=== PATIENT | female | born 1935 | race Caucasian/White ===

== ENCOUNTER 2019-10-02 00:36 | Inpatient (IN) | payer MEDICARE, BC, SELFPAY ==
[2019-10-02] VITALS (18 sets, daily range): BP systolic 103–155; BP diastolic 46–76; PULSE 54–97; RESP 14–22; TEMP 36.4–37.7; O2SAT 96–99; BMI 16.5
--- NOTE | ~2019-10-02 | XR_ITS ---
EXAMINATION: XR chest 1V portable DATE: 10/04/2019 06:16 INDICATION: COVID-19 pneumonia. TECHNIQUE: A single frontal view of the chest was obtained. COMPARISON: Chest single view 10/02/2019 FINDINGS: There are airspace opacities in right lower lung zone. Skinfolds overlie left chest. Calcif ied left lung nodules are consistent with old granulomatous disease. No pleural effusion or pneumotho rax. The heart size is normal. Surgical clips in the right upper quadrant are likely from cholecystec amber. IMPRESSION: 1. Worsened airspace opacities in right lower lung zone, consistent with pneumonia. Reviewed, dictated and finalized at location A. IMPRESSION: 1. Worsened airspace opacities in right lower lung zone, consistent with pneumo xu.
--- NOTE | ~2019-10-02 | XR_ITS ---
EXAMINATION: XR chest 1V portable DATE: 10/02/2019 01:14 INDICATION: Weakness. COVID-19 positive. TECHNIQUE: A single frontal view of the chest was obtained. COMPARISON: Chest 2 views 07/19/2017, chest CT 07/19/2017 FINDINGS: There are airspace opacities in right lower lung zone. No pleural effusion or pneumothorax. The heart size is normal. IMPRESSION: 1. Mild airspace opacities in right lower lung zone, consistent with atelectasis versus pneumonia. Reviewed, dictated and finalized at location A. IMPRESSION: 1. Mild airspace opacities in right lower lung zone, consistent with atelectasi s versus pneumonia.
--- NOTE | 2019-10-02 00:34 | ED.WEAKNESS ---
HPI - Weakness General Chief complaint: Weakness Stated complaint: weakness/ n/v/ covid + Source: patient and EMS Mode of arrival: EMS History of Present Illness HPI Narrative: Patient is an 84-year-old female with a history of hypothyroidism who presents for evaluation of weakness, nausea and vomiting with recent COVID diagnosis. Patient states over the past 3 days she has been unable to tolerate oral intake due to nausea and vomiting. She denies any headache, chest pain, abdominal pain. She reports feeling diffusely weak, denies any focal weakness or numbness. She has been ambulatory and denies any falls at home. Patient states her recently on September 19, he had been diagnosed with COVID as well. Patient denies fever, chills, rhinorrhea, cough or diarrhea. Related Data Allergies Allergy/AdvReac Type Severity Reaction Status Date / Time No Known Allergies Allergy Verified 10/02/19 02:29 Review of Systems Review of Systems: Narrative: CONSTITUTIONAL: Denies fever, chills, or sweats. EYES: Denies visual changes, redness, or discharge. ENT: Denies rhinorrhea, congestion, sore throat, or otalgia. CARDIOVASCULAR: Denies chest pain, palpitations, or edema. RESPIRATORY: Denies cough or dyspnea. GASTROINTESTINAL: Denies abdominal pain, reports nausea and vomiting GENITOURINARY: Denies dysuria or hematuria. SKIN: Denies rash or itching. MUSCULOSKELETAL: Denies back pain, joint pain, or myalgia. NEUROLOGIC: Denies headache, numbness, reports nonfocal weakness PMFSH Past Medical History Medical History Aortic stenosis Hypothyroidism Temporal arteritis Social History Social History (Updated 10/02/19 @ 00:47 by Dulce Gutierres MD) Smoking status: Never smoker Alcohol intake: never Substance use: never Living arrangements: with family Gender identity (if verbalized by the patient): Female Exam Narrative: Exam Narrative: GENERAL: Awake, alert, conversant, thin, elderly HEAD: Normocephalic, atraumatic. EYES: PERRLA and EOMI. ENT: Nares clear, no rhinorrhea or epistaxis. Mucous membranes dry NECK: Supple. CHEST: No respiratory distress, breathing even and non labored HEART: Regular rate, sinus rhythm ABDOMEN:Non distended, non tender in all 4 quadrants, no rebound or guarding EXTREMITIES: Normal range of motion. No edema. SKIN: Warm, dry, no rash. NEURO:No focal deficits. Alert and oriented x3 Course Vital Signs Vital signs: Vital Signs Temperature 36.4 C L 10/02/19 00:39 Pulse Rate 73 10/02/19 00:39 Respiratory Rate 22 H 10/02/19 00:39 Blood Pressure 143/59 H 10/02/19 00:39 Pulse Oximetry 98 10/02/19 00:39 Temperature 36.4 C L 10/02/19 00:39 Pulse Rate 62 10/02/19 02:26 Respiratory Rate 20 10/02/19 02:26 Blood Pressure 103/56 L 10/02/19 02:26 Pulse Oximetry 97 10/02/19 02:26 MDM - Weakness MDM Narrative Medical decision making narrative: Patient is an 84-year-old female with a positive COVID diagnosis who presents for evaluation of weakness, nausea and vomiting. Patient at the time of assessment is alert and oriented x4, vital signs are stable. No focal neurological deficits, and pt actually has decent strength in bilateral upper and lower extremities. No hypoxemia, or increased work of breathing. No chest pain or shortness of breath. Laboratory results show pancytopenia. She is lymphopenic. Her sodium is critically low at 115. She is hypochloremic as well. No acute kidney injury. Patient with mild elevation in troponin. EKG obtained at the time of arrival is abnormal; compare to EKG in July of 2017 when patient was admitted for pneumonia and there are changes present. Whether this is related to acute ischemia I doubt given lack of other symptoms. I believe we can continue to trend troponin, as patient is not reporting any anginal type symptoms such as chest pain, diaphoresis, dyspnea and pt is hem
--- NOTE | 2019-10-02 00:42 | ECG_ITS ---
Measurements Intervals [place] Rate: 72 P: 49 WA: 141 QRS: 36 QRSD: 83 T: -57 QT: 388 QTc: 426 Interpretive Statements SINUS RHYTHM CANNOT RULE OUT SEPTAL INFARCT, AGE INDETERMINATE BORDERLINE T WAVE ABNORMALITY- ANTEROLAT/INF LEADS BASELINE ARTIFACT- I, III, AVL, AVF, V1, V3 BORDERLINE ECG Electronically Signed On 10-02-2019 7:04:35 CDT by Daren Echevarria D.O.
[2019-10-02] MEDS: SODIUM CHLORIDE 0.9% IV 1,000 ML 999 ML IV CONT (00:49)
[2019-10-02 01:09] LABS: Hematocrit 31.7 % (37.0-47.0); Hemoglobin 11.4 g/dL (12.0-15.0); Immature Granulocyte Absolute 0.01 K/mm3 (0.00-0.031); Immature Granulocyte Percent A 0.2 % (0-0.5); Immature Platelet Fraction Pct 5.3 % (0.9-11.2); Lymphocytes Absolute Auto 0.57 K/mm3 (0.9-3.2); Lymphocytes Percent Auto 13.2 % (18.3-44.2); Mean Corpuscular Hemoglobin 29.8 pg (26-34); Mean Platelet Volume 10.4 fl (7.4-10.4); Monocytes Absolute Auto 0.5 K/mm3 (0.1-0.6); Monocytes Percent Auto 11.1 % (2.6-8.5); Neutrophils Absolute Auto 3.3 K/mm3 (1.3-6.7); Neutrophils Percent Auto 75.5 % (45.5-73.1); Platelet Count Result 131 k/mm3 (150-375); Red Blood Count 3.82 M/mm3 (4.2-5.4); Red Cell Distribution Width 11.9 % (11.5-14.5); White Blood Count 4.3 K/mm3 (4.5-10.0)
[2019-10-02 01:22] LABS: INR 0.9; Prothrombin Time 11.7 Seconds (11.1-14.7)
[2019-10-02 01:23] LABS: Partial Thromboplastin Time 29.8 SECONDS (22.3-36.8)
[2019-10-02 01:46] LABS: Lactic Acid Reflex 1.1 mmol/L (0.7-2.1)
[2019-10-02 02:36] LABS: Alanine Aminotransferase 28 U/L (4-35); Albumin Level 3.1 g/dL (3.5-5.1); Alkaline Phosphatase 49 U/L (38-126); Anion Gap 9 mmol/L (8-16); Aspartate Amino Transferase 49 U/L (14-36); Bilirubin,Total 0.3 mg/dL (0.2-1.3); Blood Urea Nitrogen 15 mg/dL (7-17); CRP 1.3 mg/dL (<1.0); Calcium 6.8 mg/dL (8.4-10.2); Carbon Dioxide 21 mmol/L (22-30); Chloride 85 mmol/L (98-107); Estimated Glomerular Filt Rate > 60; Glucose 98 mg/dL (65-105); Lactate Dehydrogenase 481 U/L (313-618); Sodium 115 mmol/L (137-145); Troponin I 0.084 ng/mL (0.000-0.034)
[2019-10-02] MEDS: SODIUM CHLORIDE 0.9% IV 1,000 ML 100 ML IV CONT (02:55)
[2019-10-02 03:45] LABS: Add Urine Microscopic? YES; Appearance Urine Clear (Clear); Bacteria Urine Trace /hpf; Bilirubin Urine Negative (Negative); Blood Urine 2+ (Negative); Color Urine Straw (Yellow); Glucose Urine UA Negative (Negative); Ketones Urine Trace mg/dL (Negative); Leukocyte Esterase Ur 2+ LEU/UL (Negative); Nitrate Urine Negative (Negative); Protein Urine 1+ mg/dL (Negative); RBC Urine 51-75 /hpf (0-2); Specific Grav Ur 1.012 (1.001-1.035); Urobilinogen Urine Negative mg/dL (<2.0); WBC Urine 51-75 /hpf
--- NOTE | 2019-10-02 03:46 | ADMGEN ---
This patient, Sri Ch, was admitted to Intensive Care Unit-1. Patient/family oriented to hospital policies and general routines including ID bracelet, bed and alarms, visiting hours, pain management, procedures, bathroom and other care routines, personal items, smoking policy, room service/diet, and visiting hours. Valuables list has been completed. Information on how to activate the Rapid Response Team has been discussed. Patient/Family are encouraged to report perceived risks to care and to ask questions if they do not understand what they are told or what they should do.
[2019-10-02] MEDS: ONDANSETRON INJ 4 MG/2 ML VIAL IV PUSH ×4 (03:50→22:15)
--- NOTE | 2019-10-02 03:57 | PM.IMHP ---
H&P: HPI History of Present Illness Date/Time: 10/02/19 03:57 Chief complaint: Hyponatremia, Dehydration Narrative: This is an 84 year old female with known hypothyroidism and recently tested positive for COVID-19 approximately 1 week ago who presented to our hospital with a complaint of feeling weak, dizzy, nauseated and vomited 4 times. She admits that she has not been drinking alot of fluids over the past 3 days. She denies any significant coughing and on my encounter with her she has a sporadic dry cough at times. She also denies any shortness of breath, headache, seizure like activity, passing out, head trauma,fever, focal neurological symptoms, palpitations, abdominal pain, dysuria, or rectal bleeding. The patient was evaluated in the ER tonight and found to have severe hyponatremia with a serum sodium of 115. She was also found to have an elevated troponin. The patient is not on any diuretics. Review of Systems Review of Systems: All systems reviewed & are unremarkable except as noted in HPI and below PMFSH Past Medical History Medical History Aortic stenosis Hypothyroidism Temporal arteritis Family History Family History Mother Gallbladder cancer Heart disease Father Heart disease Social History Social History Smoking status: Never smoker Alcohol intake: never Substance use: never Living arrangements: with family Gender identity (if verbalized by the patient): Female Spiritual care concerns: No Meds Home Medications and Allergies Home Medications Medication Instructions Recorded Confirmed Type alendronate 70 mg PO WEEKLY 10/02/19 10/02/19 History calcitriol 0.25 mcg PO DAILY 10/02/19 10/02/19 History lansoprazole 30 mg PO DAILY 10/02/19 10/02/19 History levothyroxine [Synthroid] 50 mcg PO DAILY 10/02/19 10/02/19 History metoprolol succinate 50 mg PO DAILY 10/02/19 10/02/19 History nifedipine 90 mg PO DAILY 10/02/19 10/02/19 History Allergies Allergy/AdvReac Type Severity Reaction Status Date / Time No Known Allergies Allergy Verified 10/02/19 02:29 Vital Signs Vital Signs - 24 hr 10/02/19 00:39 10/02/19 01:22 10/02/19 02:26 Temperature 36.4 C L Pulse Rate 73 60 62 Respiratory Rate 22 H 20 20 Blood Pressure 143/59 H 128/53 L 103/56 L Pulse Oximetry 98 96 97 10/02/19 02:52 10/02/19 03:19 Temperature Pulse Rate 65 62 Respiratory Rate 20 20 Blood Pressure 136/50 L 134/52 L Pulse Oximetry 97 97 Exam Const: General: cooperative, no acute distress, alert and awake Nutritional Appearance: well nourished Orientation/consciousness: patient oriented x3 HENMT: Head: normal to inspection General nose exam: Normal external nose present Face and sinus: normal facial exam Mouth: Yes Normal oral and palatal mucosa present and Yes oropharynx normal Eyes: Pupils: Equal, round and reactive pupils present EOM: EOMs intact bilaterally Neck: Neck: supple and no JVD Thyroid: thyroid normal Lymphatic: lymphadenopathy not noted Resp: Effort & Inspection: normal respiratory effort Auscultation: clear to auscultation bilaterally Cardio: Rate: regular rate Rhythm: regular rhythm Heart sounds: Murmur heart sound present (radiates to carotids++ ) systolic GI: Inspection: normal to inspection Auscultation: normal bowel sounds Skin: General skin exam: normal color and no rashes or lesions noted Neuro: General: patient oriented x3 Cranial nerves: Yes CN's II-XII intact bilaterally and Yes Equal, round and reactive pupils present Speech: normal speech Motor exam (neuro): 5/5 motor strength present throughout Sensory Exam: normal sensation Extrem: General: normal to inspection and no edema Psych: Mental Status: mental status grossly normal Affect: normal affect H&P: Results Labs Labs: Short CB
[2019-10-02 05:27] LABS: Anion Gap 10 mmol/L (8-16); Blood Urea Nitrogen 15 mg/dL (7-17); Calcium 7.2 mg/dL (8.4-10.2); Carbon Dioxide 17 mmol/L (22-30); Chloride 86 mmol/L (98-107); Estimated CRCL calculation 43 ml/min; Estimated Glomerular Filt Rate > 60; Glucose 98 mg/dL (65-105); Potassium 4.4 mmol/L (3.4-5.0); Sodium 113 mmol/L (137-145)
[2019-10-02 05:28] LABS: Troponin I 0.092 ng/mL (0.000-0.034)
[2019-10-02] MEDS: LEVOTHYROXINE SODIUM 50 MCG TABLET PO (06:33)
--- NOTE | 2019-10-02 08:11 | PM.CNNEP ---
Assessment and Plan Assessment and plan (1) Acute hyponatremia: Code(s): E87.1 - Hypo-osmolality and hyponatremia Status: Acute Assessment and Plan: the patient has a low sodium. Looking back in the chart, her sodium level was low back in 2018 as well. At that time she had pneumonia. So she has chronic hyponatremia. Now it is worse. She looks dehydrated. The story fits for dehydration as well. She is not on any medications that would cause her to have hyponatremia, including narcotics, SSRIs, and diuretics. Her chest x-ray does show atelectasis versus pneumonia. She does not really have any symptoms of the latter except that she does have COVID-19. We can check a cortisol level to make sure this is okay. We will check a TSH as well. Since the hypothyroidism is chronic and she does not have any neurologic issues I do not think we need to get a brain scan at this point but if the sodium is still difficult to control when she is done with her COVID-19 consider on MRI of the brain. (2) Dehydration: Code(s): E86.0 - Dehydration Status: Acute Assessment and Plan: The patient is getting hypertonic saline right now since her sodium level worsened. I asked the nurse to leave this on board for another 2 hours then stop it and check another sodium level. In the meantime we can continue normal saline infusion once the Hypertonic sodium infusion is stopped. (3) Hypertension: Code(s): I10 - Essential (primary) hypertension Status: Acute Assessment and Plan: blood pressure is well contr (4) Normocytic anemia: Code(s): D64.9 - Anemia, unspecified Status: Acute Assessment and Plan: Hemoglobin is mildly low. Check iron levels (5) Abnormal urinalysis: Code(s): R82.90 - Unspecified abnormal findings in urine Status: Acute Assessment and Plan: the patient has pyuria and hematuria. Urine culture is pending. She is on ceftriaxone. (6) COVID-19: Code(s): U07.1 - COVID-19 Status: Acute Assessment and Plan: She had a positive test week ago. (7) Aortic stenosis: Qualifiers: Cardiac valve disease etiology: etiology unspecified Qualified Code(s): I35.0 - Nonrheumatic aortic (valve) stenosis Code(s): I35.0 - Nonrheumatic aortic (valve) stenosis Status: Chronic Assessment and Plan: This is not giving her any trouble right now (8) Hypothyroidism: Qualifiers: Hypothyroidism type: unspecified Qualified Code(s): E03.9 - Hypothyroidism, unspecified Code(s): E03.9 - Hypothyroidism, unspecified Status: Chronic Assessment and Plan: she is on Synthroid History of Present Illness Reason for Consult Consult date: 10/02/19 Reason for consult: hyponatremia Chief Complaint Chief complaint: Hyponatremia, Dehydration History of Present Illness Narrative: Frances olivo is a very pleasant 84-year-old lady who has hypothyroidism, COVID-19, aortic stenosis, Hypertension,and temporal arteritis. The patient recently lost her COVID-19 and acquired herself 1 week ago. She was apparently asymptomatic at that time however in the last 4 days the patient has become weak and dizzy and had nausea and vomiting. Her symptoms grew worse and so she came to the emergency room. In the ER she was found to have a sodium of 115. She was felt to be dehydrated so she was given saline 1000cc bolus. The level was repeated and was down to 115. She was admitted to the ICU on a fluid restriction. because the sodium had dropped doctor latent started hypertonic saline at a slow rate. Repeat sodium has not yet been done. The patient feels okay. She is still dizzy when she stands up. She is not taking any antidepressants, pain pills, narcotics, nonsteroidal anti-inflammatory agents, or diuretics. she does have hypertension and she is on metoprolol and nifedipin
[2019-10-02] MEDS: METOPROLOL SUCCINATE EXT REL 50 MG TABCR PO (09:04)
[2019-10-02] MEDS: NIFEdipine 30 MG TAB.ER.24 90 MG PO (09:04)
[2019-10-02] MEDS: calcitrioL 0.25 MCG CAPSULE PO (09:04)
[2019-10-02] MEDS: PANTOPRAZOLE 40 MG TABLET PO (09:04)
[2019-10-02 09:58] LABS: Sodium Urine Random 36 meq/L
[2019-10-02 09:59] LABS: Creatinine Urine 18.4 mg/dL; Total Protein Urine Random 21 mg/dL
--- NOTE | 2019-10-02 10:34 | PM.CNCAR ---
Assessment and Plan Assessment and plan (1) Elevated troponin: Code(s): R79.89 - Other specified abnormal findings of blood chemistry Status: Acute Assessment and Plan: This does not appear to be secondary to acute coronary syndrome as she has no anginal symptoms. Is not uncommon to have mild troponin elevation and COVID positive patients. Patient is hemodynamically stable and without acute ischemic changes on EKG to warrant further ischemic evaluation. Continue supportive care, isolation. Aspirin 81 mg daily reasonable although mild thrombocytopenia will need to be monitored. she has no history of CAD with a negative stress test in 2018. Recent echocardiogram performed in our office July 2019 does not need to be repeated at this time. (2) COVID-19: Code(s): U07.1 - COVID-19 Status: Acute Assessment and Plan: Per primary service. Supportive care. (3) Acute hyponatremia: Code(s): E87.1 - Hypo-osmolality and hyponatremia Status: Acute Assessment and Plan: acute on chronic. I do not see medications contributing, TSH normal. Imaging if neuro sxs . Continue saline. Follow sodium levels and neurologic status closely. appreciate nephrology involvement and recommendations. (4) Aortic stenosis: Qualifiers: Cardiac valve disease etiology: etiology unspecified Qualified Code(s): I35.0 - Nonrheumatic aortic (valve) stenosis Code(s): I35.0 - Nonrheumatic aortic (valve) stenosis Status: Chronic Assessment and Plan: Moderate, asymptomatic. No acute issue. (5) Hypertension: Code(s): I10 - Essential (primary) hypertension Status: Acute Assessment and Plan: Stable. (6) Thrombocytopenia: Code(s): D69.6 - Thrombocytopenia, unspecified Status: Acute Assessment and Plan: Mild. Monitor for bleeding. Continue to follow CBC. History of Present Illness History of Present Illness Consult date/time: Date of service: 10/02/19 10:34 Cardiology consultation at the request of Dr. Heber Stephens Hospitalist Service for elevated Troponin in a COVID postive patient. Requesting physician: Colton Hansen MD Consult reason: Other (elevated troponin) Reason For Visit: Hyponatremia, Dehydration Narrative: patient is an 84-year-old female whom I follow as an outpatient with a history of hypertension, chronic kidney disease, chronic hyponatremia, hypothyroidism, h/o symptomatic PVCs status post PVC ablation x2, history of aortic stenosis, mitral tricuspid regurgitation. No history of CAD and with the negative stress test 08/11/2017. Echocardiogram 07/17/2019 and are office EF 65% [id number] MR, moderate mean gradient 11 mm Hg valve area 1.2 centimeters squared [id number] AI, RVSP 45 mm Hg moderate to severe tricuspid regurgitation. patient was diagnosed with COVID-19 1 week prior to presentation. She presented with complaints of feeling weak, dizzy a, nausea and vomiting, decreased oral intake. She denies significant shortness of breath or fever. No near-syncope or syncope. Patient has not had chest pain at any time. Her recently on September 19 multiple medical problems as well as COVID-19 positive. In the ER she was severely hyponatremic serum sodium of 115, troponin was checked for unclear reasons and was mildly elevated 0.084, 0.092. EKG unchanged without acute ischemic changes. She continues to denied chest pain or shortness of breath. Other than feeling weak she has no other complaints presently. Review of Systems Review of Systems: All systems reviewed & are unremarkable except as noted in HPI and below Constitutional: Constitutional: Reports as per HPI, Reports no additional constitutional complaints, Reports fatigue, Reports lethargy and Reports weakness Eyes: Eyes: Reports as per HPI and Reports no additional eye complaints ENT: Reports system reviewed and no additional
[2019-10-02 11:14] LABS: Sodium 121 mmol/L (137-145)
[2019-10-02 14:34] LABS: Sodium 124 mmol/L (137-145)
[2019-10-02] MEDS: DESMOPRESSIN ACETATE 4 MCG/ML AMP 2 MCG IV PUSH ×2 (17:11→21:03)
--- NOTE | 2019-10-02 17:22 | PM.IMPN ---
Progress Note: A&P Assessment and Plan (1) Acute hyponatremia: Code(s): E87.1 - Hypo-osmolality and hyponatremia Status: Acute Assessment and Plan: , check urine sodium and urine osm, TSH normal. The patient received 1 liter of NS IV bolus in the ER and repeat BMP demonstrated worsened serum sodium of 113. received hypertonic saline after discussion with admissions rn sodium rising to quickly cell now receiving DDVP and D5W nephrology managing sodium adjusting and fluids random cortisol level still pending if low do stimulation test sodium has been toward low side in the past but typically low 130s (2) Weakness: Code(s): R53.1 - Weakness Status: Acute Assessment and Plan: Likely secondary to dehydration, hyponatremia, and covid-19 infection. PT/OT evaluation when appropriate. (3) Abnormal urinalysis: Code(s): R82.90 - Unspecified abnormal findings in urine Status: Acute Assessment and Plan: r/o UTI. urine culture. Ceftriaxone IV pending results of culture (4) Dehydration: Code(s): E86.0 - Dehydration Status: Acute Assessment and Plan: Continue IV hydration. (5) Elevated troponin: Code(s): R79.89 - Other specified abnormal findings of blood chemistry Status: Acute Assessment and Plan: May be secondary to COVID-19 infection. cardiology has seen and no further intervention planned. Has had ischemic workup in the past which is negative (6) COVID-19: Code(s): U07.1 - COVID-19 Status: Acute Assessment and Plan: Continue droplet isolation. Supportive care check inflammatory markers. (7) Hypothyroidism: Qualifiers: Hypothyroidism type: unspecified Qualified Code(s): E03.9 - Hypothyroidism, unspecified Code(s): E03.9 - Hypothyroidism, unspecified Status: Chronic Assessment and Plan: Continue levothyroxine PO. TSH normal (8) Aortic stenosis: Qualifiers: Cardiac valve disease etiology: etiology unspecified Qualified Code(s): I35.0 - Nonrheumatic aortic (valve) stenosis Code(s): I35.0 - Nonrheumatic aortic (valve) stenosis Status: Chronic Assessment and Plan: no change follow with level vial inspector and tester had echo within the last few months (9) Hypertension: Code(s): I10 - Essential (primary) hypertension Status: Acute Assessment and Plan: pressure adequately controlled continue beta-marcus and calcium channel marcus (10) Thrombocytopenia: Code(s): D69.6 - Thrombocytopenia, unspecified Status: Acute Assessment and Plan: mild thrombocytopenia. Will continue with b.i.d. Lovenox given the tendency for hypercoagulation with COVID and follow platelet count serially Subjective Date/time seen: 10/02/19 17:22 Interval history: 84-year-old white female with history of hypertension and recent diagnosis of COVID admitted with nausea vomiting and weakness. Found to be hyponatremic with sodium 115. Has been given hypertonic saline with rapidly rising sodium. Nephrology managing Exam Narrative: Exam Narrative: blood pressure 138/50 pulse 70 saturating 97% on room air afebrile pupils equal reactive light sclera anicteric neck supple no adenopathy thyromegaly carotid bruits lungs clear CV systolic ejection murmur abdomen is soft bowel sounds normal active extremities without edema distal pulses are 1 to 2+ neuro alert pleasant cooperative no focal deficits Objective Data Vital Signs Vital Signs: Vital Signs - 24 hr 10/02/19 00:39 10/02/19 01:22 10/02/19 02:26 Temperature 36.4 C L Pulse Rate 73 60 62 Respiratory Rate 22 H 20 20 Blood Pressure 143/59 H 128/53 L 103/56 L Pulse Oximetry 98 96 97 10/02/19 02:52 10/02/19 03:19 10/02/19 04:00 Temperature 37.1 C Pulse Rate 65 62 70 Respiratory Rate 20 20 19 Blood Pressure 136/50 L 134/52 L 140/76 Pulse Oximetry 97 97 98 10/02/19 06:00
[2019-10-02 19:59] LABS: Anion Gap 8 mmol/L (8-16); Blood Urea Nitrogen 13 mg/dL (7-17); Calcium 7.2 mg/dL (8.4-10.2); Carbon Dioxide 22 mmol/L (22-30); Chloride 94 mmol/L (98-107); Estimated CRCL calculation 37 ml/min; Estimated Glomerular Filt Rate > 60; Glucose 122 mg/dL (65-105); Potassium 3.6 mmol/L (3.4-5.0); Sodium 124 mmol/L (137-145)
[2019-10-02] MEDS: ACETAMINOPHEN 325 MG TABLET 650 MG PO (20:16)
[2019-10-02] MEDS: ENOXAPARIN 40 MG/0.4 ML SYRINGE SUB-Q (20:18)
[2019-10-02 22:36] LABS: Anion Gap 8 mmol/L (8-16); Blood Urea Nitrogen 15 mg/dL (7-17); Calcium 7.8 mg/dL (8.4-10.2); Carbon Dioxide 23 mmol/L (22-30); Chloride 89 mmol/L (98-107); Estimated CRCL calculation 33 ml/min; Estimated Glomerular Filt Rate > 60; Glucose 106 mg/dL (65-105); Potassium 3.6 mmol/L (3.4-5.0); Sodium 120 mmol/L (137-145)
[2019-10-03] VITALS (11 sets, daily range): BP systolic 101–125; BP diastolic 34–56; PULSE 61–75; RESP 14–22; TEMP 36.4–36.6; O2SAT 95–99
[2019-10-03] MEDS: ONDANSETRON INJ 4 MG/2 ML VIAL IV PUSH ×2 (05:09→10:20)
[2019-10-03 05:10] LABS: Basophils Percent Auto 0.2 % (0.2-1.2); Hematocrit 31.2 % (37.0-47.0); Hemoglobin 10.9 g/dL (12.0-15.0); Immature Granulocyte Absolute 0.01 K/mm3 (0.00-0.031); Immature Granulocyte Percent A 0.2 % (0-0.5); Lymphocytes Absolute Auto 0.74 K/mm3 (0.9-3.2); Lymphocytes Percent Auto 15.4 % (18.3-44.2); Mean Corpuscular HGB Conc 34.9 g/dl (32-36); Mean Corpuscular Hemoglobin 29.6 pg (26-34); Mean Corpuscular Volume 84.8 fl (80-100); Mean Platelet Volume 10.2 fl (7.4-10.4); Monocytes Absolute Auto 0.5 K/mm3 (0.1-0.6); Monocytes Percent Auto 10.4 % (2.6-8.5); Neutrophils Absolute Auto 3.5 K/mm3 (1.3-6.7); Neutrophils Percent Auto 73.8 % (45.5-73.1); Platelet Count Result 132 k/mm3 (150-375); Red Blood Count 3.68 M/mm3 (4.2-5.4); Red Cell Distribution Width 12.2 % (11.5-14.5); White Blood Count 4.8 K/mm3 (4.5-10.0)
[2019-10-03] MEDS: ACETAMINOPHEN 325 MG TABLET 650 MG PO ×3 (05:15→22:45)
[2019-10-03 05:25] LABS: D Dimer 0.77 ug/mL (<0.48)
[2019-10-03 05:34] LABS: Anion Gap 8 mmol/L (8-16); Blood Urea Nitrogen 16 mg/dL (7-17); CRP 2.1 mg/dL (<1.0); Calcium 7.8 mg/dL (8.4-10.2); Carbon Dioxide 24 mmol/L (22-30); Chloride 88 mmol/L (98-107); Estimated CRCL calculation 30 ml/min; Estimated Glomerular Filt Rate 60; Glucose 96 mg/dL (65-105); Lactate Dehydrogenase 604 U/L (313-618); Potassium 3.5 mmol/L (3.4-5.0); Sodium 120 mmol/L (137-145)
[2019-10-03] MEDS: LEVOTHYROXINE SODIUM 50 MCG TABLET PO (06:44)
[2019-10-03] MEDS: METOPROLOL SUCCINATE EXT REL 50 MG TABCR PO (08:24)
[2019-10-03] MEDS: PANTOPRAZOLE 40 MG TABLET PO (08:24)
[2019-10-03] MEDS: ENOXAPARIN 40 MG/0.4 ML SYRINGE SUB-Q ×2 (08:24→20:00)
[2019-10-03] MEDS: calcitrioL 0.25 MCG CAPSULE PO (08:24)
[2019-10-03] MEDS: NIFEdipine 30 MG TAB.ER.24 90 MG PO (08:24)
--- NOTE | 2019-10-03 08:51 | PM.PNNEP ---
Progress Note: A&P Assessment and Plan (1) Acute hyponatremia: Code(s): E87.1 - Hypo-osmolality and hyponatremia Status: Acute Assessment and Plan: the patient has a low sodium. Looking back in the chart, her sodium level was low back in 2018 as well. At that time she had pneumonia. So she has chronic hyponatremia. Now it is worse. Cortisol and thyroid okay. Chest x-ray negative. Most likely due to superimposed dehydration. Yesterday she got some IV fluids and began to auto correct too quickly. So I gave her DDAVP and some D5W and the sodium came back down to a reasonable 120. She is 120 again this morning. She is still dehydrated so I will give her some Isotonic IV fluids today. (2) Dehydration: Code(s): E86.0 - Dehydration Status: Acute Assessment and Plan: start normal saline (3) Hypertension: Code(s): I10 - Essential (primary) hypertension Status: Acute Assessment and Plan: blood pressure is well contr (4) Normocytic anemia: Code(s): D64.9 - Anemia, unspecified Status: Acute Assessment and Plan: Hemoglobin is mildly low. Check iron levels (5) Abnormal urinalysis: Code(s): R82.90 - Unspecified abnormal findings in urine Status: Acute Assessment and Plan: the patient has pyuria and hematuria. Urine culture shows 3 different organisms. She is on ceftriaxone. (6) COVID-19: Code(s): U07.1 - COVID-19 Status: Acute Assessment and Plan: She had a positive test week ago. (7) Aortic stenosis: Qualifiers: Cardiac valve disease etiology: etiology unspecified Qualified Code(s): I35.0 - Nonrheumatic aortic (valve) stenosis Code(s): I35.0 - Nonrheumatic aortic (valve) stenosis Status: Chronic Assessment and Plan: This is not giving her any trouble right now (8) Hypothyroidism: Qualifiers: Hypothyroidism type: unspecified Qualified Code(s): E03.9 - Hypothyroidism, unspecified Code(s): E03.9 - Hypothyroidism, unspecified Status: Chronic Assessment and Plan: she is on Synthroid Subjective Date/time seen: 10/03/19 08:51 Interval history: Patient is alert. No appetite. nausea and vomiting are better. She denies shortness of breath or chest pain Review of Systems Cardiovascular: Cardiovascular: Reports no additional cardiovascular complaints Respiratory: Respiratory: Reports no additional respiratory complaints Gastrointestinal: Gastrointestinal: Reports no additional gastrointestinal complaints Genitourinary: Genitourinary: Reports no additional female genitourinary complaints Exam Narrative: Exam Narrative: WDWN in NAD skin no rash head ncat lungs clear cor reg no rub abd BS+ nontender and soft ext no edema. Objective Data Vital Signs Vital Signs: Vital Signs - 24 hr 10/02/19 09:04 10/02/19 10:00 10/02/19 12:00 Temperature 36.7 C Pulse Rate 69 58 L 68 Respiratory Rate 16 17 Blood Pressure 144/47 H 124/55 L Pulse Oximetry 99 97 10/02/19 14:00 10/02/19 16:00 10/02/19 18:00 Temperature 36.6 C Pulse Rate 70 75 77 Respiratory Rate 17 14 21 H Blood Pressure 138/49 L 121/46 L 129/48 L Pulse Oximetry 97 98 96 10/02/19 20:00 10/02/19 20:16 10/02/19 21:05 Temperature 37.7 C H 37.7 C H 37.7 C H Pulse Rate 70 Respiratory Rate 16 Blood Pressure 123/48 L Pulse Oximetry 96 10/02/19 22:00 10/03/19 00:00 10/03/19 02:00 Temperature 36.6 C Pulse Rate 97 64 63 Respiratory Rate 19 16 17 Blood Pressure 123/46 L 121/50 L 112/41 L Pulse Oximetry 97 98 96 10/03/19 04:00 10/03/19 06:00 10/03/19 08:00 Temperature 36.6 C Pulse Rate 75 61 65 Respiratory Rate 19 18 Blood Pressure 113/45 L 115/46 L Pulse Oximetry 97 95 Intake/Output Intake/Output: Intake & Output 09/30/19 10/01/19 10/02/19 10/03/19 23:59 23:59 23:59 23:59 In
[2019-10-03] MEDS: SODIUM CHLORIDE 0.9% IV 1,000 ML 75 ML IV CONT ×2 (10:07→22:45)
[2019-10-03 10:47] LABS: Sodium 120 mmol/L (137-145)
[2019-10-03 14:18] LABS: Sodium 120 mmol/L (137-145)
--- NOTE | 2019-10-03 18:35 | PM.IMPN ---
Progress Note: A&P Assessment and Plan (1) Acute hyponatremia: Code(s): E87.1 - Hypo-osmolality and hyponatremia Status: Acute Assessment and Plan: Na 115 on admission. Paz 36 and UCr 18. TSH normal. The patient received 1 liter of NS IV bolus in the ER and repeat BMP demonstrated worsened serum sodium of 113. She received hypertonic saline after discussion with dredge mechanic. Na climbed to 120-124 range and remained stable. Continue serial Na level. Appreciate nephrology input. (2) Weakness: Code(s): R53.1 - Weakness Status: Acute Assessment and Plan: Likely secondary to dehydration, hyponatremia, and covid-19 infection. Start PT/OT (3) Abnormal urinalysis: Code(s): R82.90 - Unspecified abnormal findings in urine Status: Acute Assessment and Plan: UA noted. Urine culture showing multiple organisms so doubt true infection. Will stop Ceftriaxone (4) Dehydration: Code(s): E86.0 - Dehydration Status: Acute Assessment and Plan: As above. Continue IV hydration. (5) Elevated troponin: Code(s): R79.89 - Other specified abnormal findings of blood chemistry Status: Acute Assessment and Plan: May be secondary to COVID-19 infection. Cardiology has seen and no further intervention planned. Has had ischemic workup in the past which was negative (6) COVID-19: Code(s): U07.1 - COVID-19 Status: Acute Assessment and Plan: Ferritin 312, LDH 600 and CRP 2.1. Continue droplet isolation. Continue supportive care. (7) Hypothyroidism: Qualifiers: Hypothyroidism type: unspecified Qualified Code(s): E03.9 - Hypothyroidism, unspecified Code(s): E03.9 - Hypothyroidism, unspecified Status: Chronic Assessment and Plan: TSH normal. Continue levothyroxine PO. (8) Aortic stenosis: Qualifiers: Cardiac valve disease etiology: etiology unspecified Qualified Code(s): I35.0 - Nonrheumatic aortic (valve) stenosis Code(s): I35.0 - Nonrheumatic aortic (valve) stenosis Status: Chronic Assessment and Plan: Stable. Monitor closely with the IV fluids. Follow with assistant associate full professor - she had echo within the last few months (9) Hypertension: Code(s): I10 - Essential (primary) hypertension Status: Acute Assessment and Plan: BP reviewed on 10/03/19. BP well controlled. Continue Nifedipine and Metoprolol. (10) Thrombocytopenia: Code(s): D69.6 - Thrombocytopenia, unspecified Status: Acute Assessment and Plan: mild thrombocytopenia. No change in plt count today. Will continue with b.i.d. Lovenox given the tendency for hypercoagulation with COVID and follow platelet count serially (11) DVT prophylaxis: Code(s): Z29.9 - Encounter for prophylactic measures, unspecified Status: Acute Assessment and Plan: Lovenox Subjective Date/time seen: 10/03/19 18:35 Interval history: 84yo female with history of hypertension and recent diagnosis of COVID admitted with nausea, vomiting and weakness and found to be hyponatremic with sodium 115. She was given hypertonic salin. She denies CP or SOB. She states she is not getting food but RN states patient has been receiving trays but only eating 10% of meals. No recent BM. No abd pain. No n/v. Exam Narrative: Exam Narrative: AF 125/56 74 18 95% RA Gen - NARD lying semi-recumbent in bed Chest - few scattered rhonchi, nml RR CV - RRR S1/S2; Tele showing no significant dysrhythmias Abd - soft, nt/nd, +BS Ext - no pedal edema Neuro - AOx4. Objective Data Vital Signs Vital Signs: Vital Signs - 24 hr 10/02/19 20:00 10/02/19 20:16 10/02/19 21:05 Temperature 99.9 F H 99.9 F H 100 F H Pulse Rate 70 Respiratory Rate 16 Blood Pressure 123/48 L Pulse Oximetry 96 10/02/19 22:00 10/03/19 00:00 10/03/19 02:0
[2019-10-03 21:24] LABS: Sodium 121 mmol/L (137-145)
--- NOTE | 2019-10-03 21:40 | PC.NURSE ---
This patient, Sri Ch, was transferred to [facility] on 10/03/19 at 2000. Personal belongings sent with patient. Belongings list checked and signed with receiving Roberto Spear RN. Report given to Roberto PEARL. Appropriate documentation sent with patient.
[2019-10-04] VITALS (7 sets, daily range): BP systolic 111–126; BP diastolic 37–52; PULSE 69–89; RESP 14–20; TEMP 36.3–37.1; O2SAT 92–96
[2019-10-04] MEDS: LEVOTHYROXINE SODIUM 50 MCG TABLET PO (05:45)
[2019-10-04 06:30] LABS: Basophils Percent Auto 0.3 % (0.2-1.2); Eosinophils Percent Auto 0.3 % (0-4.4); Hemoglobin 10.6 g/dL (12.0-15.0); Immature Granulocyte Absolute 0.03 K/mm3 (0.00-0.031); Immature Granulocyte Percent A 0.8 % (0-0.5); Immature Platelet Fraction Pct 4.4 % (0.9-11.2); Lymphocytes Absolute Auto 0.69 K/mm3 (0.9-3.2); Lymphocytes Percent Auto 18.6 % (18.3-44.2); Mean Corpuscular HGB Conc 35.3 g/dl (32-36); Mean Corpuscular Hemoglobin 29.6 pg (26-34); Mean Corpuscular Volume 83.8 fl (80-100); Mean Platelet Volume 10.2 fl (7.4-10.4); Monocytes Absolute Auto 0.4 K/mm3 (0.1-0.6); Monocytes Percent Auto 11.1 % (2.6-8.5); Neutrophils Absolute Auto 2.6 K/mm3 (1.3-6.7); Neutrophils Percent Auto 68.9 % (45.5-73.1); Platelet Count Result 132 k/mm3 (150-375); Red Blood Count 3.58 M/mm3 (4.2-5.4); White Blood Count 3.7 K/mm3 (4.5-10.0)
[2019-10-04 06:43] LABS: Anion Gap 9 mmol/L (8-16); Blood Urea Nitrogen 11 mg/dL (7-17); CRP 3.6 mg/dL (<1.0); Calcium 7.4 mg/dL (8.4-10.2); Carbon Dioxide 21 mmol/L (22-30); Chloride 91 mmol/L (98-107); Estimated CRCL calculation 38 ml/min; Estimated Glomerular Filt Rate > 60; Glucose 81 mg/dL (65-105); Potassium 3.5 mmol/L (3.4-5.0); Sodium 121 mmol/L (137-145)
[2019-10-04] MEDS: METOPROLOL SUCCINATE EXT REL 50 MG TABCR PO (08:09)
[2019-10-04] MEDS: calcitrioL 0.25 MCG CAPSULE PO (08:10)
[2019-10-04] MEDS: NIFEdipine 30 MG TAB.ER.24 90 MG PO (08:10)
[2019-10-04] MEDS: ENOXAPARIN 40 MG/0.4 ML SYRINGE SUB-Q (08:10)
[2019-10-04] MEDS: PANTOPRAZOLE 40 MG TABLET PO (08:11)
[2019-10-04] MEDS: SODIUM CHLORIDE 0.9% IV 1,000 ML 75 ML IV CONT (11:21)
[2019-10-04] MEDS: ONDANSETRON INJ 4 MG/2 ML VIAL IV PUSH (11:21)
--- NOTE | 2019-10-04 11:32 | PM.PNNEP ---
Progress Note: A&P Assessment and Plan (1) Acute hyponatremia: Code(s): E87.1 - Hypo-osmolality and hyponatremia Status: Acute Assessment and Plan: the patient has a low sodium. Looking back in the chart, her sodium level was low back in 2018 as well. At that time she had pneumonia. So she has chronic hyponatremia. Now it is worse. Cortisol and thyroid okay. Chest x-ray negative. Most likely due to superimposed dehydration. Yesterday she got some IV fluids and began to auto correct too quickly. So I gave her DDAVP and some D5W and the sodium came back down to a reasonable 120. Sodium level is still 120. Urine output is not very high. Will give a small amount of hypertonic saline to get the sodium level up a little bit. (2) Dehydration: Code(s): E86.0 - Dehydration Status: Acute Assessment and Plan: start normal saline (3) Hypertension: Code(s): I10 - Essential (primary) hypertension Status: Acute Assessment and Plan: blood pressure is well controlled (4) Normocytic anemia: Code(s): D64.9 - Anemia, unspecified Status: Acute Assessment and Plan: Hemoglobin is mildly low. Check iron levels (5) Abnormal urinalysis: Code(s): R82.90 - Unspecified abnormal findings in urine Status: Acute Assessment and Plan: the patient has pyuria and hematuria. Urine culture shows 3 different organisms. She is on ceftriaxone. (6) COVID-19: Code(s): U07.1 - COVID-19 Status: Acute Assessment and Plan: She had a positive test week ago. (7) Aortic stenosis: Qualifiers: Cardiac valve disease etiology: etiology unspecified Qualified Code(s): I35.0 - Nonrheumatic aortic (valve) stenosis Code(s): I35.0 - Nonrheumatic aortic (valve) stenosis Status: Chronic Assessment and Plan: This is not giving her any trouble right now (8) Hypothyroidism: Qualifiers: Hypothyroidism type: unspecified Qualified Code(s): E03.9 - Hypothyroidism, unspecified Code(s): E03.9 - Hypothyroidism, unspecified Status: Chronic Assessment and Plan: she is on Synthroid Subjective Date/time seen: 10/04/19 11:32 Interval history: Patient is alert. No appetite. nausea and vomiting are better. resting comfortably in Review of Systems Cardiovascular: Cardiovascular: Reports no additional cardiovascular complaints Respiratory: Respiratory: Reports no additional respiratory complaints Gastrointestinal: Gastrointestinal: Reports no additional gastrointestinal complaints Genitourinary: Genitourinary: Reports no additional female genitourinary complaints Exam Narrative: Exam Narrative: WDWN in NAD skin no rash head ncat lungs clear cor reg no rub abd BS+ nontender and soft ext no edema. Objective Data Vital Signs Vital Signs: Vital Signs - 24 hr 10/03/19 12:00 10/03/19 14:00 10/03/19 16:00 Temperature 36.4 C L 36.6 C Pulse Rate 68 72 71 Respiratory Rate 16 18 22 H Blood Pressure 116/42 L 118/45 L 115/50 L Pulse Oximetry 96 99 95 10/03/19 18:00 10/03/19 19:36 10/04/19 00:45 Temperature 36.6 C 36.8 C Pulse Rate 68 74 69 Respiratory Rate 18 18 18 Blood Pressure 101/34 L 125/56 L 126/52 L Pulse Oximetry 97 95 95 10/04/19 04:00 10/04/19 08:00 10/04/19 08:09 Temperature 36.7 C 36.3 C L Pulse Rate 73 74 80 Respiratory Rate 18 14 Blood Pressure 123/42 L 121/37 L Pulse Oximetry 94 96 Intake/Output Intake/Output: Intake & Output 10/01/19 10/02/19 10/03/19 10/04/19 23:59 23:59 23:59 23:59 Intake Total 3265 1420 1520 Output Total 3300 750 200 Balance -35 670 1320 Meds/Results Medications: Active Medications Generic Name Dose Route Start Last Admin Trade Name Freq PRN Reason Stop Dose Admin Acetaminophen 650 mg 10/02/19 02:51 10/03/19 22:45 Tylenol Tablet PO 650 mg Q
[2019-10-04] MEDS: SODIUM CHLORIDE 3% 500 ML 45 ML IV CONT (12:18)
--- NOTE | 2019-10-04 16:35 | PM.IMPN ---
Progress Note: A&P Assessment and Plan (1) Acute hyponatremia: Code(s): E87.1 - Hypo-osmolality and hyponatremia Status: Acute Assessment and Plan: Na 115 on admission. Paz 36 and UCr 18. TSH normal. The patient received 1 liter of NS IV bolus in the ER and repeat BMP demonstrated worsened serum sodium of 113. She received hypertonic saline after discussion with men's leather dress belt maker. Na climbed to 120-124 range but given D5W and DDAVP given how fast it climbed. Na hasn't changed significnatly since. Discussed with nephrology with plans to repeat NaCl 3%. Appreciate nephrology input. (2) Weakness: Code(s): R53.1 - Weakness Status: Acute Assessment and Plan: Likely secondary to dehydration, hyponatremia, and COVID-19 infection. Continue PT/OT (3) Depression: Code(s): F32.9 - Major depressive disorder, single episode, unspecified Status: Acute Assessment and Plan: Mood still poor. She has lost her recently. Wasn't sure if this is organic or related to the COVID infection +/- hyponatremia. She is eating better today. Will allow her Na to improve to see if her mood improves with it. (4) Abnormal urinalysis: Code(s): R82.90 - Unspecified abnormal findings in urine Status: Acute Assessment and Plan: UA noted. Urine culture showing multiple organisms so doubt true infection. Ceftriaxone stopped. (5) Dehydration: Code(s): E86.0 - Dehydration Status: Acute Assessment and Plan: As above. Continue IV hydration. (6) Elevated troponin: Code(s): R79.89 - Other specified abnormal findings of blood chemistry Status: Acute Assessment and Plan: May be secondary to COVID-19 infection. Cardiology has seen the patient and no further intervention planned. Has had ischemic workup in the past which was negative (7) COVID-19: Code(s): U07.1 - COVID-19 Status: Acute Assessment and Plan: Ferritin 312, LDH 600 and CRP 2.1. Continue droplet isolation. Continue supportive care. (8) Hypothyroidism: Qualifiers: Hypothyroidism type: unspecified Qualified Code(s): E03.9 - Hypothyroidism, unspecified Code(s): E03.9 - Hypothyroidism, unspecified Status: Chronic Assessment and Plan: TSH normal. Continue levothyroxine PO. (9) Aortic stenosis: Qualifiers: Cardiac valve disease etiology: etiology unspecified Qualified Code(s): I35.0 - Nonrheumatic aortic (valve) stenosis Code(s): I35.0 - Nonrheumatic aortic (valve) stenosis Status: Chronic Assessment and Plan: Stable. Monitor closely with the IV fluids. Follow with semaphore operator - she had echo within the last few months (10) Hypertension: Code(s): I10 - Essential (primary) hypertension Status: Acute Assessment and Plan: BP reviewed on 10/04/19. BP well controlled. Continue Nifedipine and Metoprolol. (11) Thrombocytopenia: Code(s): D69.6 - Thrombocytopenia, unspecified Status: Acute Assessment and Plan: Mild thrombocytopenia. No change in plt count past few days. Will continue with Lovenox given the tendency for hypercoagulation with COVID and follow platelet count serially. (12) DVT prophylaxis: Code(s): Z29.9 - Encounter for prophylactic measures, unspecified Status: Acute Assessment and Plan: Lovenox Subjective Date/time seen: 10/04/19 16:35 Interval history: 84yo female with history of hypertension and recent diagnosis of COVID admitted with nausea, vomiting and weakness and found to be hyponatremic with sodium 115. She was given hypertonic saline in the ER. She is not eating much due to nausea. She is having BMs. RN states patient is eating half her tray and did take in the Ensure Exam Narrative: Exam Narrative: AF 112/48 83 18 94% ra Gen - NARD lying flat in bed Chest
[2019-10-04 19:06] LABS: Sodium 123 mmol/L (137-145)
[2019-10-05] VITALS (7 sets, daily range): BP systolic 116–124; BP diastolic 40–50; PULSE 68–80; RESP 16–20; TEMP 36.2–37.9; O2SAT 93–97
[2019-10-05] MEDS: ACETAMINOPHEN 325 MG TABLET 650 MG PO ×4 (00:19→22:02)
[2019-10-05] MEDS: LEVOTHYROXINE SODIUM 50 MCG TABLET PO (06:31)
[2019-10-05] MEDS: SODIUM CHLORIDE 0.9% IV 1,000 ML 75 ML IV CONT (06:32)
[2019-10-05 06:51] LABS: Albumin Level 3.1 g/dL (3.5-5.1); Anion Gap 8 mmol/L (8-16); Blood Urea Nitrogen 12 mg/dL (7-17); Calcium 7.5 mg/dL (8.4-10.2); Carbon Dioxide 23 mmol/L (22-30); Chloride 93 mmol/L (98-107); Estimated CRCL calculation 34 ml/min; Estimated Glomerular Filt Rate > 60; Glucose 94 mg/dL (65-105); Magnesium 1.6 mg/dL (1.6-2.3); Phosphorus 1.8 mg/dL (2.5-4.5); Potassium 2.9 mmol/L (3.4-5.0); Sodium 124 mmol/L (137-145)
[2019-10-05 07:01] LABS: Osmolality, Urine 195 mOsm/kg (50-1200)
[2019-10-05] MEDS: POTASSIUM CHLORIDE 20 MEQ TABLET 40 MEQ PO (08:09)
[2019-10-05] MEDS: MAGNESIUM SULF 2 GM/WATER 50ML 2 GM/50 ML BAG IVPB (08:09)
[2019-10-05] MEDS: ENOXAPARIN 40 MG/0.4 ML SYRINGE SUB-Q (08:11)
[2019-10-05] MEDS: PANTOPRAZOLE 40 MG TABLET PO (08:11)
[2019-10-05] MEDS: calcitrioL 0.25 MCG CAPSULE PO (08:11)
--- NOTE | 2019-10-05 08:30 | PM.PNNEP ---
Progress Note: A&P Assessment and Plan (1) Acute hyponatremia: Code(s): E87.1 - Hypo-osmolality and hyponatremia Status: Acute Assessment and Plan: the patient has a low sodium. Looking back in the chart, her sodium level was low back in 2018 as well. At that time she had pneumonia. She has chronic hyponatremia. sodium much lower on admission. Cortisol and thyroid okay. Chest x-ray negative. Most likely due to superimposed dehydration. On Wednesday, she got some IV fluids and began to auto correct too quickly. So I gave her DDAVP and some D5W and the sodium came back down to a reasonable 120. sodium stable for a long time so 3% saline given yesterday to get sodium up to 124. It is still 124 today. Urine output is not very high. So no sign of auto correction. Perhaps the DDAVP has a lasting effect. She is getting some IV fluids. This is because she was dehydrated and she is still not eating very well. These a going at75cc/hour. Will reduce the rate to 50 since the sodium level is still flat I will give another round of 3% saline (2) Dehydration: Code(s): E86.0 - Dehydration Status: Acute Assessment and Plan: on normal saline (3) Hypertension: Code(s): I10 - Essential (primary) hypertension Status: Acute Assessment and Plan: blood pressure is well controlled (4) Normocytic anemia: Code(s): D64.9 - Anemia, unspecified Status: Acute Assessment and Plan: Hemoglobin is mildly low. Check iron levels (5) Abnormal urinalysis: Code(s): R82.90 - Unspecified abnormal findings in urine Status: Acute Assessment and Plan: the patient has pyuria and hematuria. Urine culture shows 3 different organisms. She is on ceftriaxone. (6) COVID-19: Code(s): U07.1 - COVID-19 Status: Acute Assessment and Plan: She had a positive test week ago. still on isolation. (7) Aortic stenosis: Qualifiers: Cardiac valve disease etiology: etiology unspecified Qualified Code(s): I35.0 - Nonrheumatic aortic (valve) stenosis Code(s): I35.0 - Nonrheumatic aortic (valve) stenosis Status: Chronic Assessment and Plan: This is not giving her any trouble right now (8) Hypothyroidism: Qualifiers: Hypothyroidism type: unspecified Qualified Code(s): E03.9 - Hypothyroidism, unspecified Code(s): E03.9 - Hypothyroidism, unspecified Status: Chronic Assessment and Plan: she is on Synthroid Subjective Date/time seen: 10/05/19 08:30 Interval history: Patient is alert. No appetite. just feels blah. resting comfortably in bed Review of Systems Cardiovascular: Cardiovascular: Reports no additional cardiovascular complaints Respiratory: Respiratory: Reports no additional respiratory complaints Gastrointestinal: Gastrointestinal: Reports no additional gastrointestinal complaints Genitourinary: Genitourinary: Reports no additional female genitourinary complaints Exam Narrative: Exam Narrative: WDWN in NAD skin no rash or subcu nodules head ncat lungs clear to auscultation cor reg no rub abd BS+ nontender and soft ext no edema. Objective Data Vital Signs Vital Signs: Vital Signs - 24 hr 10/04/19 12:00 10/04/19 16:00 10/04/19 20:00 Temperature 36.4 C 36.8 C 37.1 C Pulse Rate 83 89 84 Respiratory Rate 18 20 20 Blood Pressure 112/48 L 111/41 L 118/50 L Pulse Oximetry 94 92 93 10/05/19 02:00 10/05/19 04:00 Temperature 36.2 C L 37.9 C H Pulse Rate 80 68 Respiratory Rate 18 20 Blood Pressure 120/40 L 118/44 L Pulse Oximetry 94 97 Intake/Output Intake/Output: Intake & Output 10/02/19 10/03/19 10/04/19 10/05/19 23:59 23:59 23:59 23:59 Intake Total 3265 1420 2280 1290 Output Total 3300 750 1600 Balance -35 002 302 2449 Meds/Results Medications: Active Medications Generic Name Dose R
[2019-10-05] MEDS: METOPROLOL SUCCINATE EXT REL 50 MG TABCR PO (10:17)
[2019-10-05] MEDS: SODIUM CHLORIDE 3% 150 ML 50 ML IV CONT (10:18)
[2019-10-05] MEDS: NIFEdipine 30 MG TAB.ER.24 90 MG PO (10:18)
[2019-10-05] MEDS: POTASSIUM PHOS,M-BASIC-D-BASIC 20 MMOL in SODIUM CHLORIDE 0.9% IV 250 ML 64 MMOL IVPB (11:11)
--- NOTE | 2019-10-05 11:45 | PM.IMPN ---
Progress Note: A&P Assessment and Plan (1) Acute hyponatremia: Code(s): E87.1 - Hypo-osmolality and hyponatremia Status: Acute Assessment and Plan: Na 115 on admission. Paz 36 and UCr 18. TSH normal. The patient received 1 liter of NS IV bolus in the ER and repeat BMP demonstrated worsened serum sodium of 113. She received hypertonic saline after discussion with box office agent. Na climbed to 120-124 range but given D5W and DDAVP given how fast it climbed. Na hasn't changed significnatly since so NaCl 3% repeated. Na now up to 130. Appreciate nephrology input. Also with low phos, potassium and Mag all of which wee replaced. Repat values normal. Follow. (2) Weakness: Code(s): R53.1 - Weakness Status: Acute Assessment and Plan: Likely secondary to dehydration, hyponatremia, and COVID-19 infection. Continue PT/OT (3) Depression: Code(s): F32.9 - Major depressive disorder, single episode, unspecified Status: Acute Assessment and Plan: Mood still poor. She has lost her recently. Wasn't sure if this is organic or related to the COVID infection +/- hyponatremia. She states she is not eating well but dietary did see the patient and she seens to have improved oral intake. Hold off on anti-depressants given the hyponatremia. Continue to monitor. (4) Abnormal urinalysis: Code(s): R82.90 - Unspecified abnormal findings in urine Status: Acute Assessment and Plan: UA noted. Urine culture showing multiple organisms so doubt true infection. Ceftriaxone stopped. (5) Dehydration: Code(s): E86.0 - Dehydration Status: Acute Assessment and Plan: As above. Continue IV hydration. (6) Elevated troponin: Code(s): R79.89 - Other specified abnormal findings of blood chemistry Status: Acute Assessment and Plan: May be secondary to COVID-19 infection. Cardiology has seen the patient and no further intervention planned. Has had ischemic workup in the past which was negative (7) COVID-19: Code(s): U07.1 - COVID-19 Status: Acute Assessment and Plan: Ferritin 312, LDH 600 and CRP 2.1. Continue droplet isolation. Continue supportive care. (8) Hypothyroidism: Qualifiers: Hypothyroidism type: unspecified Qualified Code(s): E03.9 - Hypothyroidism, unspecified Code(s): E03.9 - Hypothyroidism, unspecified Status: Chronic Assessment and Plan: TSH normal. Continue levothyroxine PO. (9) Aortic stenosis: Qualifiers: Cardiac valve disease etiology: etiology unspecified Qualified Code(s): I35.0 - Nonrheumatic aortic (valve) stenosis Code(s): I35.0 - Nonrheumatic aortic (valve) stenosis Status: Chronic Assessment and Plan: Stable. Monitor closely with the IV fluids. Follow with centrifugal operator - she had echo within the last few months (10) Hypertension: Code(s): I10 - Essential (primary) hypertension Status: Acute Assessment and Plan: BP reviewed on 10/05/19. BP well controlled. Continue Nifedipine and Metoprolol. (11) Thrombocytopenia: Code(s): D69.6 - Thrombocytopenia, unspecified Status: Acute Assessment and Plan: Mild thrombocytopenia. No change in plt count past few days. Will continue with Lovenox given the tendency for hypercoagulation with COVID and follow platelet count serially. (12) DVT prophylaxis: Code(s): Z29.9 - Encounter for prophylactic measures, unspecified Status: Acute Assessment and Plan: Lovenox Subjective Date/time seen: 10/05/19 11:45 Interval history: 84yo female with history of hypertension and recent diagnosis of COVID admitted with nausea, vomiting and weakness and found to be hyponatremic with sodium 115. She was given hypertonic saline in the ER. She denies feeling overly sad but does feel down from r
--- NOTE | 2019-10-05 12:31 | PCNFU ---
Nutrition Follow-Up Complete: Underweight related to inadequate kcal intake prior to admission as evidenced by BMI of 16.5. Goal: Patient to consume 50% of meals/supplements or greater. Progressing towards goal. We will continue current goal. Pt current nutrition is Heart Healthy/1800 ml Fluid Restriction. Nutrition recommendation: Agree Last recorded weight is 46.4 kg. Bowel Motility:+BM reported 10/03 Labs Reviewed:PO4 1.4,Alb 3.1,Na 124,K 2.9 Meds Noted:Protonix, Lovenox,NS at 50 ml/hr Additional Notes: Spoke with patient today over telephone due to COVID 19 precautions. Patient states to less nausea/diarrhea today. Appetite still not great, eating about 45-50% of meals. Breakfast today-100% of eggs and peaches. She is drinking her Ensure Compact BID providing an additional 220 kcals and 9 gms protein. PO intake is encouraged. Monitoring: Follow up every 5 days.
[2019-10-05 16:29] LABS: Sodium 130 mmol/L (137-145)
--- NOTE | 2019-10-05 16:30 | PCOTNOTE ---
The patient treatment was not able to be completed on 10/05/2019 due to time restraint. Will plan to continue treatment per plan of care.
[2019-10-05 16:34] LABS: Anion Gap 8 mmol/L (8-16); Blood Urea Nitrogen 12 mg/dL (7-17); Calcium 7.3 mg/dL (8.4-10.2); Carbon Dioxide 22 mmol/L (22-30); Chloride 100 mmol/L (98-107); Estimated CRCL calculation 38 ml/min; Estimated Glomerular Filt Rate > 60; Glucose 135 mg/dL (65-105); Magnesium 2.3 mg/dL (1.6-2.3); Potassium 3.9 mmol/L (3.4-5.0); Sodium 130 mmol/L (137-145)
[2019-10-05 17:00] LABS: Iron 14 ug/dL (37-170)
[2019-10-05 17:10] LABS: Percent Iron Saturation 6 % (20-50)
[2019-10-05 21:50] LABS: Sodium 129 mmol/L (137-145)
[2019-10-06] VITALS: BP 118/50; PULSE 73; RESP 20; TEMP 36.7; O2SAT 90
[2019-10-06 04:00] VITALS: BP 120/40; PULSE 80; RESP 20; TEMP 36.8; O2SAT 90
[2019-10-06] MEDS: SODIUM CHLORIDE 0.9% IV 1,000 ML 50 ML IV CONT (05:37)
[2019-10-06] MEDS: LEVOTHYROXINE SODIUM 50 MCG TABLET PO (05:39)
[2019-10-06 06:27] LABS: Albumin Level 3.3 g/dL (3.5-5.1); Anion Gap 8 mmol/L (8-16); Blood Urea Nitrogen 10 mg/dL (7-17); Calcium 7.6 mg/dL (8.4-10.2); Carbon Dioxide 24 mmol/L (22-30); Chloride 97 mmol/L (98-107); Estimated CRCL calculation 44 ml/min; Estimated Glomerular Filt Rate > 60; Glucose 106 mg/dL (65-105); Magnesium 1.8 mg/dL (1.6-2.3); Phosphorus 1.5 mg/dL (2.5-4.5); Potassium 3.4 mmol/L (3.4-5.0); Sodium 129 mmol/L (137-145)
[2019-10-06] MEDS: POTASSIUM PHOS,M-BASIC-D-BASIC 20 MMOL in SODIUM CHLORIDE 0.9% IV 250 ML 62.5 MMOL IVPB ×2 (07:52→20:20)
[2019-10-06] MEDS: NIFEdipine 30 MG TAB.ER.24 90 MG PO (07:53)
[2019-10-06] MEDS: calcitrioL 0.25 MCG CAPSULE PO (07:53)
[2019-10-06] MEDS: ENOXAPARIN 40 MG/0.4 ML SYRINGE SUB-Q (07:54)
[2019-10-06] MEDS: PANTOPRAZOLE 40 MG TABLET PO (07:54)
[2019-10-06 07:55] VITALS: PULSE 92
[2019-10-06] MEDS: METOPROLOL SUCCINATE EXT REL 50 MG TABCR PO (07:55)
[2019-10-06 08:00] VITALS: BP 110/40; PULSE 78; RESP 18; TEMP 36.7; O2SAT 92
[2019-10-06] MEDS: ACETAMINOPHEN 325 MG TABLET 650 MG PO ×3 (08:06→23:21)
--- NOTE | 2019-10-06 12:06 | PM.IMPN ---
Progress Note: A&P Assessment and Plan (1) Acute hyponatremia: Code(s): E87.1 - Hypo-osmolality and hyponatremia Status: Chronic Assessment and Plan: Na 115 on admission. Paz 36 and UCr 18. TSH normal. Cortisol 21.6. The patient received 1 liter of NS IV bolus in the ER and repeat BMP demonstrated worsened serum sodium of 113. She then received hypertonic saline after discussion with craft demonstrator. Na climbed to 120-124 range but was given D5W and DDAVP due to how fast it climbed. Na was checked serial after that and hadn't changed significantly so NaCl 3% repeated. Na now up to 129-130. Appreciate nephrology input. Also with low phos, potassium and Mag on 10/04. All of which were replaced with normal values on repeat later that day. Potassium 3.4, Mag 1.8 and Phos 1.5 today. Possibly refeeding syndrome since she is eating better. Will replace electrolyes again. (2) Weakness: Code(s): R53.1 - Weakness Status: Acute Assessment and Plan: Likely secondary to dehydration, hyponatremia, and COVID-19 infection. Continue PT/OT. Care coord working on discharge plan. (3) Depression: Code(s): F32.9 - Major depressive disorder, single episode, unspecified Status: Acute Assessment and Plan: Mood was poor on admission. She has lost her recently. Wasn't sure if this is organic or related to the COVID infection +/- hyponatremia. She states she is not eating well prior to admisson but this seems to be improving. Mood better overall since Na improved. Hold off on anti-depressants given the hyponatremia. Continue to monitor. (4) Dehydration: Code(s): E86.0 - Dehydration Status: Acute Assessment and Plan: As above. Currently on IV fluids. (5) Elevated troponin: Code(s): R79.89 - Other specified abnormal findings of blood chemistry Status: Acute Assessment and Plan: May be secondary to COVID-19 infection. Cardiology has seen the patient and no further intervention planned. Has had ischemic workup in the past which was negative (6) COVID-19: Code(s): U07.1 - COVID-19 Status: Acute Assessment and Plan: Tolerating this infection well. Multiple family members also infected. Ferritin 312, LDH 600 and CRP 2.1. Continue droplet isolation. Continue supportive care. (7) Hypothyroidism: Qualifiers: Hypothyroidism type: unspecified Qualified Code(s): E03.9 - Hypothyroidism, unspecified Code(s): E03.9 - Hypothyroidism, unspecified Status: Chronic Assessment and Plan: TSH normal. Continue levothyroxine PO. (8) Aortic stenosis: Qualifiers: Cardiac valve disease etiology: etiology unspecified Qualified Code(s): I35.0 - Nonrheumatic aortic (valve) stenosis Code(s): I35.0 - Nonrheumatic aortic (valve) stenosis Status: Chronic Assessment and Plan: Stable. Monitor closely with the IV fluids. Follow with transportation superintendent - she had echo within the last few months (9) Hypertension: Qualifiers: Hypertension type: essential hypertension Qualified Code(s): I10 - Essential (primary) hypertension Code(s): I10 - Essential (primary) hypertension Status: Acute Assessment and Plan: BP reviewed on 10/06/19. BP well controlled. Continue Nifedipine and Metoprolol. (10) Thrombocytopenia: Code(s): D69.6 - Thrombocytopenia, unspecified Status: Acute Assessment and Plan: Mild thrombocytopenia. No change in plt count past few days. Will continue with Lovenox given the tendency for hypercoagulation with COVID and follow platelet count serially. Repeat CBC in the morning (11) Abnormal urinalysis: Code(s): R82.90 - Unspecified abnormal findings in urine Status: Acute Assessment and Plan: UA noted. Urine culture showing multiple organisms so doubt true infection
[2019-10-06] MEDS: POTASSIUM CHLORIDE 20 MEQ TABLET 40 MEQ PO (12:58)
[2019-10-06] MEDS: MAGNESIUM SULF 2 GM/WATER 50ML 2 GM/50 ML BAG IVPB (12:58)
[2019-10-06 15:25] LABS: Magnesium 2.8 mg/dL (1.6-2.3); Phosphorus 2.1 mg/dL (2.5-4.5); Potassium 3.9 mmol/L (3.4-5.0)
--- NOTE | 2019-10-06 15:52 | P.PNNP_ITS ---
Progress Note: A&P Assessment and Plan (1) Hyponatremia: Code(s): E87.1 - Hypo-osmolality and hyponatremia Status: Chronic Assessment and Plan: * somewhat of a chronic issues -- dates back as far as 2018 - although she had pneumonia at that time * evaluation to date noted: - normal TSH - normal cortisol - CXR negative * acute worsening likely dehydration on top of baseline low sodium levels * issues with overcorrection noted * most recently given 3% saline x 2 with rise in sodium to current level * remains on low dose IVF and fluid restriction * presumed baseline ~ 128 - 132mmol/L (2) Dehydration: Code(s): E86.0 - Dehydration Status: Acute Assessment and Plan: * on low dose normal saline * wean off as oral intake improves (3) Hypertension: Qualifiers: Hypertension type: essential hypertension Qualified Code(s): I10 - Essential (primary) hypertension Code(s): I10 - Essential (primary) hypertension Status: Acute Assessment and Plan: * reasonable control * follow trend in hemodynamics (4) Abnormal urinalysis: Code(s): R82.90 - Unspecified abnormal findings in urine Status: Acute Assessment and Plan: * urine culture results noted * on IV antibiotics (5) COVID-19: Code(s): U07.1 - COVID-19 Status: Acute Assessment and Plan: * positive on admission * multiple family member positive * follow inflammatory markers (6) Hypothyroidism: Qualifiers: Hypothyroidism type: unspecified Qualified Code(s): E03.9 - Hypothyroidism, unspecified Code(s): E03.9 - Hypothyroidism, unspecified Status: Chronic Assessment and Plan: * TSH okay * on levothyrosixine Subjective Date/time seen: 10/06/19 15:52 Chart reviewed since admission -- wide fluctuations in sodium level since hospitalization with use of normal saline, D5W + DDAVP (due to concerns of overcorrection) and 3% saline; sodium seems relatively stable now; no apparent distress voiced at this time. Exam Narrative: Exam Narrative: General: WD/WN female in NAD Heart: normal S1 and S2; no rub Lungs: clear to auscultation Abdomen: soft, nontender, nondistended, positive bowel sounds Extremities: no cyanosis or clubbing; no edema Skin: warm and dry Objective Data Vital Signs Vital Signs: Vital Signs Temp Pulse Resp BP Pulse Ox 08/21/20 08:00 36.7 C 78 18 110/40 L 92 10/06/19 07:55 92 10/06/19 04:00 36.8 C 80 20 120/40 L 90 10/06/19 00:00 36.7 C 73 20 118/50 L 90 10/05/19 20:00 37.2 C 76 20 122/50 L 93 10/05/19 16:00 36.8 C 76 16 118/46 L 94 Intake/Output Intake/Output: Intake & Output 10/03/19 10/04/19 10/05/19 10/06/19 23:59 23:59 23:59 23:59 Intake Total 1420 2280 2526.6 1730 Output Total 750 1600 1050 1400 Balance 613 326 1870.6 330 Meds/Results Medications: Active Medications Generic Name Dose Route Start Last Admin Trade Name Freq PRN Reason Stop Dose Admin Acetaminophen 650 mg 10/02/19 02:51 10/06/19 08:06 Tylenol Tablet PO 650 mg Q4H PRN Administration Mild Pain (1-3) or Fever Calcitriol 0.25 mcg 10/02/19 09:00 10/06/19 07:53
--- NOTE | 2019-10-06 15:52 | PM.PNNEP ---
Progress Note: A&P Assessment and Plan (1) Hyponatremia: Code(s): E87.1 - Hypo-osmolality and hyponatremia Status: Chronic Assessment and Plan: somewhat of a chronic issues -- dates back as far as 2018 - although she had pneumonia at that time evaluation to date noted: - normal TSH - normal cortisol - CXR negative acute worsening likely dehydration on top of baseline low sodium levels issues with overcorrection noted most recently given 3% saline x 2 with rise in sodium to current level remains on low dose IVF and fluid restriction presumed baseline ~ 128 - 132mmol/L (2) Dehydration: Code(s): E86.0 - Dehydration Status: Acute Assessment and Plan: on low dose normal saline wean off as oral intake improves (3) Hypertension: Qualifiers: Hypertension type: essential hypertension Qualified Code(s): I10 - Essential (primary) hypertension Code(s): I10 - Essential (primary) hypertension Status: Acute Assessment and Plan: reasonable control follow trend in hemodynamics (4) Abnormal urinalysis: Code(s): R82.90 - Unspecified abnormal findings in urine Status: Acute Assessment and Plan: urine culture results noted on IV antibiotics (5) COVID-19: Code(s): U07.1 - COVID-19 Status: Acute Assessment and Plan: positive on admission multiple family member positive follow inflammatory markers (6) Hypothyroidism: Qualifiers: Hypothyroidism type: unspecified Qualified Code(s): E03.9 - Hypothyroidism, unspecified Code(s): E03.9 - Hypothyroidism, unspecified Status: Chronic Assessment and Plan: TSH okay on levothyrosixine Subjective Date/time seen: 10/06/19 15:52 Chart reviewed since admission -- wide fluctuations in sodium level since hospitalization with use of normal saline, D5W + DDAVP (due to concerns of overcorrection) and 3% saline; sodium seems relatively stable now; no apparent distress voiced at this time. Exam Narrative: Exam Narrative: General: WD/WN female in NAD Heart: normal S1 and S2; no rub Lungs: clear to auscultation Abdomen: soft, nontender, nondistended, positive bowel sounds Extremities: no cyanosis or clubbing; no edema Skin: warm and dry Objective Data Vital Signs Vital Signs: Vital Signs Temp Pulse Resp BP Pulse Ox 10/06/19 08:00 36.7 C 78 18 110/40 L 92 10/06/19 07:55 92 10/06/19 04:00 36.8 C 80 20 120/40 L 90 10/06/19 00:00 36.7 C 73 20 118/50 L 90 10/05/19 20:00 37.2 C 76 20 122/50 L 93 10/05/19 16:00 36.8 C 76 16 118/46 L 94 Intake/Output Intake/Output: Intake & Output 10/03/19 10/04/19 10/05/19 10/06/19 23:59 23:59 23:59 23:59 Intake Total 1420 2280 2526.6 1730 Output Total 750 1600 1050 1400 Balance 913 080 3463.6 330 Meds/Results Medications: Active Medications Generic Name Dose Route Start Last Admin Trade Name Freq PRN Reason Stop Dose Admin Acetaminophen 650 mg 10/02/19 02:51 10/06/19 08:06 Tylenol Tablet PO 650 mg Q4H PRN Administration Mild Pain (1-3) or Fever Calcitriol 0.25 mcg 10/02/19 09:00 10/06/19 07:53 Rocaltrol PO 0.25 mcg DAILY MATTHEW Administration Enoxaparin Sodium 40 mg 10/04/19 09:00 10/06/19 07:54 Lovenox SUB-Q 40 mg DAILY MATTHEW Administration Sodium Chloride 1,000 mls @ 50 mls/hr 10/03/19 09:00 10/06/19 05:37 Normal Saline Iv IV CONT 50 mls/hr .Q20H MATTHEW Administration Levothyroxine Sodium 50 mcg 10/02/19 06:30 10/06/19 05:39 Synthroid PO 50 mcg DAILY@0630 MATTHEW Administration Metoprolol Succinate 50 mg 10/02/19 09:00 10/06/19 07:55 Toprol Xl PO 50 mg DAILY MATTHEW Administration Nifedipine 90 mg 10/02/19 09:00 10/06/19 07:53 Procardia Xl PO 90 mg DAILY MATTHEW Administration Ondansetron HCl 4 mg 10/02/19 02:51 10/04/19 11:21 Zofran In
[2019-10-06 16:00] VITALS: BP 115/32; PULSE 81; RESP 16; TEMP 36.8; O2SAT 94
[2019-10-06 20:00] VITALS: BP 118/44; PULSE 85; RESP 16; TEMP 36.9; O2SAT 93
[2019-10-07] VITALS: BP 114/40; PULSE 78; RESP 16; TEMP 36.7; O2SAT 93
[2019-10-07 04:00] VITALS: BP 110/58; PULSE 81; RESP 16; TEMP 36.8; O2SAT 94
[2019-10-07 06:41] LABS: Hemoglobin 8.9 g/dL (12.0-15.0); Immature Platelet Fraction Pct 2.6 % (0.9-11.2); Mean Corpuscular HGB Conc 34.2 g/dl (32-36); Mean Corpuscular Hemoglobin 29.5 pg (26-34); Mean Corpuscular Volume 86.1 fl (80-100); Mean Platelet Volume 9.7 fl (7.4-10.4); Platelet Count Result 152 k/mm3 (150-375); Red Blood Count 3.02 M/mm3 (4.2-5.4); Red Cell Distribution Width 12.8 % (11.5-14.5); White Blood Count 3.8 K/mm3 (4.5-10.0)
[2019-10-07] MEDS: LEVOTHYROXINE SODIUM 50 MCG TABLET PO (06:50)
[2019-10-07 07:02] LABS: Albumin Level 2.9 g/dL (3.5-5.1); Anion Gap 5 mmol/L (8-16); Blood Urea Nitrogen 9 mg/dL (7-17); Calcium 7.5 mg/dL (8.4-10.2); Carbon Dioxide 25 mmol/L (22-30); Chloride 99 mmol/L (98-107); Estimated CRCL calculation 38 ml/min; Estimated Glomerular Filt Rate > 60; Glucose 90 mg/dL (65-105); Phosphorus 2.5 mg/dL (2.5-4.5); Potassium 4.7 mmol/L (3.4-5.0); Sodium 129 mmol/L (137-145)
[2019-10-07 08:00] VITALS: BP 100/58; PULSE 90; RESP 18; TEMP 36.7; O2SAT 93
[2019-10-07 08:55] VITALS: PULSE 64
[2019-10-07] MEDS: ENOXAPARIN 40 MG/0.4 ML SYRINGE SUB-Q (08:55)
[2019-10-07] MEDS: METOPROLOL SUCCINATE EXT REL 50 MG TABCR PO (08:55)
[2019-10-07] MEDS: NIFEdipine 30 MG TAB.ER.24 90 MG PO (08:55)
[2019-10-07] MEDS: PANTOPRAZOLE 40 MG TABLET PO (08:55)
[2019-10-07] MEDS: SODIUM CHLORIDE 0.9% IV 1,000 ML 50 ML IV CONT (08:55)
[2019-10-07] MEDS: calcitrioL 0.25 MCG CAPSULE PO (08:55)
--- NOTE | 2019-10-07 10:11 | PM.DS ---
DS: Admitting Diagnosis Admitting Diagnosis Admitting Diagnosis: Hyponatremia, Dehydration DS: Discharge Diagnosis Discharge Diagnosis (1) Acute hyponatremia: Code(s): E87.1 - Hypo-osmolality and hyponatremia Status: Chronic Assessment and Plan: Na 115 on admission. Paz 36 and UCr 18. TSH normal. Cortisol 21.6. The patient received 1 liter of NS IV bolus in the ER and repeat BMP demonstrated worsened serum sodium of 113. She then received hypertonic saline after discussion with director of anesthesia services. Na climbed to 120-124 range but was given D5W and DDAVP due to how fast it climbed. Na was checked serial after that and hadn't changed significantly so NaCl 3% repeated. Na now up to 129-130 which is around her chronic baseline. Appreciate nephrology input. Also with low phos, potassium and Mag on 10/04. All of which were replaced with normal values on repeat later that day. Potassium 3.4, Mag 1.8 and Phos 1.5 on 10/05 and again were replaced. Possibly refeeding syndrome since she is eating better. Repeat electrolytes normal now. She is eating better. (2) Weakness: Code(s): R53.1 - Weakness Status: Acute Assessment and Plan: Likely secondary to dehydration, hyponatremia, and COVID-19 infection. PT/OT worked with the patient. Home with home health. Plan discharge today. Discussed with daughter who states she was unaware and has been trying to arrange for family to stay in the home. Patient had been informed that she was close to discharge. (3) Depression: Code(s): F32.9 - Major depressive disorder, single episode, unspecified Status: Acute Assessment and Plan: Mood was poor on admission. She has lost her recently. Suspect situational depression with associated issues of COVID infection +/- hyponatremia. She states she is not eating well prior to admission but this seems to be improving. Mood better overall since sodium has improved. We held off on anti-depressants given the hyponatremia. (4) Dehydration: Code(s): E86.0 - Dehydration Status: Acute Assessment and Plan: As above. Treated with IV fluids. (5) Elevated troponin: Code(s): R79.89 - Other specified abnormal findings of blood chemistry Status: Acute Assessment and Plan: May be secondary to COVID-19 infection. Cardiology has seen the patient and no further intervention planned. Has had ischemic workup in the past which was negative. (6) COVID-19: Code(s): U07.1 - COVID-19 Status: Acute Assessment and Plan: Tolerating this infection well. Multiple family members also infected. Ferritin 312, LDH 600 and CRP 2.1. She was isolated with droplet precautins. She was treated with supportive care. (7) Hypothyroidism: Qualifiers: Hypothyroidism type: unspecified Qualified Code(s): E03.9 - Hypothyroidism, unspecified Code(s): E03.9 - Hypothyroidism, unspecified Status: Chronic Assessment and Plan: TSH normal. We continued levothyroxine PO. (8) Aortic stenosis: Qualifiers: Cardiac valve disease etiology: etiology unspecified Qualified Code(s): I35.0 - Nonrheumatic aortic (valve) stenosis Code(s): I35.0 - Nonrheumatic aortic (valve) stenosis Status: Chronic Assessment and Plan: Stable. Plan for patient to follow with galvanizing pot runner - she had echo within the last few months. (9) Hypertension: Qualifiers: Hypertension type: essential hypertension Qualified Code(s): I10 - Essential (primary) hypertension Code(s): I10 - Essential (primary) hypertension Status: Acute Assessment and Plan: BP monitored and remained well controlled. We continued Nifedipine and Metoprolol. BP may be too tightly controlled so we did decrease the Nifedipine. (10) Thrombocytopenia: Code(s): D69.6 - Thrombocytopenia, unspecified
[2019-10-07 22:09] LABS: Kappa\\Lambda Light Chains 1.34 (0.26-1.65); Lambda Light Chain 24.2 mg/L (5.7-26.3)
[2019-10-08 23:36] LABS: Albumin 3.2 g/dL (3.8-4.8); Alpha 1 Globulin 0.3 g/dL (0.2-0.3); Alpha 2 Globulin 0.8 g/dL (0.5-0.9); Beta 1 Globulin 0.4 g/dL (0.4-0.6); Gamma Globulin 0.7 g/dL (0.8-1.7); Protein, Total 5.7 g/dL (6.1-8.1)
--- NOTE | 2019-10-11 07:26 | PC.NURSE ---
SPEP is nml [place] LC is elevated at 32.5 L[place] LC is nml at 24.2 Dr. Kerr aware. Results faxed to Dr. Hi.
== END 2019-10-07 13:10 | disposition home health service (06) | DRG 640 ==
LOC: ANHED 03:01 → ANHICU 03:20 → ANH3MEDSUR 10-04 11:50 → ANHICU 10-10 15:40
PROVIDERS: Internal Medicine; Internal Medicine Nephrology; Admitting Provider Family Medicine; Emergency Provider Emergency Medicine; PCP Internal Medicine; Visit Provider Internal Medicine
DX: E87.1 Hypo-osmolality and hyponatremia (principal); U07.1 COVID-19; E86.0 Dehydration; F43.21 Adjustment disorder with depressed mood; R79.89 Other specified abnormal findings of blood chemistry; I35.0 Nonrheumatic aortic (valve) stenosis; I10 Essential (primary) hypertension; D69.6 Thrombocytopenia, unspecified; R82.90 Unspecified abnormal findings in urine; E03.9 Hypothyroidism, unspecified; M31.6 Other giant cell arteritis; D64.9 Anemia, unspecified
CPT/HCPCS: 36415; 71045; 80048; 80053; 80069; 81001; 82533; 82570; 82607; 82728; 83540; 83550; 83605; 83615; 83735; 83883; 83935; 84100; 84132; 84155; 84156; 84165; 84295; 84300; 84443; 84484; 85025; 85027; 85055; 85380; 85610; 85730; 86140; 87086; 87088; 93005; 96361; 96365; 96367; 96375; 96376; 97110; 97116; 97161; 97165; 97535; 99285; A9270; G0378; J0131; J0696; J1650; J2405; J2597; J3475; J7030; J7050; J7060; J7131

== ENCOUNTER 2020-07-03 17:40 | Observation (INO) | payer MEDICARE, BC, SELFPAY ==
[2020-07-03] VITALS (34 sets, daily range): BP systolic 146–196; BP diastolic 44–85; PULSE 64–88; RESP 11–20; TEMP 36.2–36.8; O2SAT 96–100; BMI 19.5
--- NOTE | ~2020-07-03 | CT_ITS ---
EXAMINATION: CT abdomen pelvis w con INDICATION: Epigastric abdominal pain TECHNIQUE: Computed tomographic images of the abdomen and pelvis were obtained after the administrati on of 100 cc of Omnipaque 350 intravenous contrast. The dose-length product (DLP) was 166.34 mGy-cm. Automated exposure control and iterative reconstruction technique were employed. COMPARISON: None available FINDINGS: There is atrial enlargement of the heart. There is a small fat-containing posterior diaphra gmatic hernia on the right. The gallbladder is surgically absent. The liver, spleen, pancreas, and ad renal glands are normal. Cysts of the kidneys measure up to 6 mm on the right. There is calcified ath erosclerosis of the aorta and many of the other arteries. No pathologically enlarged abdominal or pel robert lymph nodes are identified. There is no free intraperitoneal gas or evidence of bowel obstruction . Colonic diverticulosis is present without evidence of diverticulitis. The appendix is normal. There is a moderate volume of liquid stool in the proximal colon. Severe lumbar spondylosis is noted. Ther e is moderate distention of the urinary bladder. IMPRESSION: 1. No CT correlate for the patient's symptoms. 2. Moderate distention of the urinary bladder. 3. Atrial enlargement of the heart. Reviewed, dictated and finalized at location A.
--- NOTE | ~2020-07-03 | XR_ITS ---
XR chest 2V DATE: 07/03/2020 18:07 INDICATION: Chest tightness. Hypertension. TECHNIQUE: PA and lateral views COMPARISON: 10/04/2019 portable AP chest FINDINGS: Bilateral hyperinflation. Mild cardiomegaly. Aortic calcification. No hilar or mediastinal enlargement. No pulmonary infiltrate or consolidation, pleural effusion or pulmonary vascular congestion or pneumo thorax is detected. Diffuse osteopenia. Surgical clips, right upper quadrant, likely due to cholecystectomy. IMPRESSION: Bilateral hyperinflation suggesting COPD Mild cardiomegaly. Aortic atherosclerosis Status post cholecystectomy Diffuse osteopenia Reviewed, dictated and finalized at location B.
--- NOTE | 2020-07-03 17:47 | ECG_ITS ---
Measurements Intervals [place] Rate: 73 P: 3 ME: 152 QRS: -27 QRSD: 86 T: 57 QT: 359 QTc: 397 Interpretive Statements SINUS RHYTHM CANNOT RULE OUT SEPTAL INFARCT, AGE INDETERMINATE BASELINE ARTIFACT- I, II, III, AVR, AVF, V1, V3-V6 ABNORMAL ECG Electronically Signed On 07-03-2020 20:01:14 CDT by Daren Echevarria D.O.
--- NOTE | 2020-07-03 18:09 | ED.CHESTPAIN ---
HPI - Chest Pain General Chief Complaint: Chest Pain Stated Complaint: TINGLING BILATERAL SHOULDERS/PALPITATION Time Seen by Provider: 07/03/20 17:56 Source: RN notes reviewed History of Present Illness HPI narrative: Patient presents to emergency department from home for chest pain. Patient states for the last week she has had intermittent episodes of chest pain from the lower ribs up to her neck with tingling in her bilateral arms she states that these episodes are intermittent and have been approximately 2 times a day with symptoms last anywhere from several minutes to an hour. She states the symptoms usually resolve when she lays down she denies any fevers or chills shortness of breath nausea vomiting or diarrhea. She does note intermittent upper abdominal pain as well patient states that she was having pain earlier but is resolved at this time. Patient does states she has a history of valvular heart disease and is followed by Dr. Price but denies history of stents Related Data Home Medications Medication Instructions Recorded Confirmed alendronate 70 mg PO WEEKLY 10/02/19 10/02/19 calcitriol 0.25 mcg PO DAILY 10/02/19 10/02/19 lansoprazole 30 mg PO DAILY 10/02/19 10/02/19 levothyroxine [Synthroid] 50 mcg PO DAILY 10/02/19 10/02/19 metoprolol succinate 50 mg PO DAILY 10/02/19 10/02/19 Allergies Allergy/AdvReac Type Severity Reaction Status Date / Time No Known Allergies Allergy Verified 10/02/19 02:29 Review of Systems Review of Systems: Narrative: Gen.: Denies fevers or chills Eyes: Denies eye pain or visual change ENT: Denies congestion Respiratory: Denies shortness of breath or cough CV: See HPI GI: Reports upper abdominal pain denies nausea, emesis or diarrhea denies burning, urgency, frequency or hematuria Musculoskeletal: Denies back pain or muscle pain Neuro: Denies weakness. Reports tingling in bilateral arms Skin: Denies rash Except as documented, all other systems reviewed and negative [facility] Past Medical History Medical History (Updated 07/03/20 @ 20:11 by Yosi Marvin DO) Aortic stenosis Hypertension Hypothyroidism Temporal arteritis Family History Family History Mother Gallbladder cancer Heart disease Father Heart disease Social History Social History Smoking status: Never smoker Alcohol intake: never Substance use: never Gender identity (if verbalized by the patient): Female Spiritual care concerns: No Exam Narrative: Exam Narrative: APPEARANCE: No acute distress, nontoxic, resting in bed EYES: EOMI HEENT: Normocephalic, atraumatic, OMM RESPIRATORY: No respiratory distress Clear to auscultation bilaterally with no rhonchi wheezing or rales. CARDIOVASCULAR: Regular rate and rhythm with grade 3/6 systolic ejection murmur, bilateral radial pulse 2+ ABDOMINAL: Soft, nondistended, tender palpation epigastric and right upper quadrant no tenderness left lower quadrant, right lower quadrant left lower quadrant no rebound or guarding MUSCULOSKELETAl: Moves all extremities. No clubbing, cyanosis or edema. NEURO: Awake and alert. Following commands, speech normal, no focal deficits SKIN:: Warm, dry. No rashes lesions or abrasions PSYCHIATRIC: Normal affect/mood, Course Course Emergency Course: Discussed with Dr. Price presentation work-up at this time agrees with consult and recommends serial troponins will follow as inpatient Discussed with Dr. Jha patient work-up agrees with admission at this time Discussed with patient and family results of workup and diagnosis. Discussed need for admission. Patient and family understand and agree to current treatment plan Vital Signs Vital signs: Vital Signs Pulse Rate 88 07/03/20 17:47 Respiratory Rate 19 07/03/20 17:47 Pulse Oximetry 98 07/03/20 17:47 Temperature 98.3 F 07/03/20 18:22 Pul
[2020-07-03 18:40] LABS: Basophils Absolute Auto 0.1 K/mm3 (0.0-0.1); Basophils Percent Auto 0.6 % (0.2-1.2); Eosinophils Absolute Auto 0.1 K/mm3 (0-0.3); Eosinophils Percent Auto 1.3 % (0-4.4); Hematocrit 38.9 % (37.0-47.0); Hemoglobin 12.5 g/dL (12.0-15.0); Immature Granulocyte Absolute 0.02 K/mm3 (0.00-0.031); Immature Granulocyte Percent A 0.2 % (0-0.5); Lymphocytes Percent Auto 18.2 % (18.3-44.2); Mean Corpuscular HGB Conc 32.1 g/dl (32-36); Mean Corpuscular Hemoglobin 29.8 pg (26-34); Mean Corpuscular Volume 92.8 fl (80-100); Mean Platelet Volume 10.2 fl (7.4-10.4); Monocytes Absolute Auto 0.9 K/mm3 (0.1-0.6); Monocytes Percent Auto 10.5 % (2.6-8.5); Neutrophils Absolute Auto 5.7 K/mm3 (1.3-6.7); Neutrophils Percent Auto 69.2 % (45.5-73.1); Platelet Count Result 233 k/mm3 (150-375); Red Blood Count 4.19 M/mm3 (4.2-5.4); Red Cell Distribution Width 12.4 % (11.5-14.5); White Blood Count 8.3 K/mm3 (4.5-10.0)
[2020-07-03 18:50] LABS: Anion Gap 7 mmol/L (8-16); Blood Urea Nitrogen 25 mg/dL (7-17); Calcium 9.8 mg/dL (8.4-10.2); Carbon Dioxide 28 mmol/L (22-30); Chloride 104 mmol/L (98-107); Estimated CRCL calculation 29 ml/min; Estimated Glomerular Filt Rate 53; Glucose 112 mg/dL (65-105); Potassium 4.2 mmol/L (3.4-5.0); Sodium 139 mmol/L (137-145)
[2020-07-03 18:51] LABS: Alanine Aminotransferase 14 U/L (4-35); Albumin Level 4.5 g/dL (3.5-5.1); Alkaline Phosphatase 64 U/L (38-126); Aspartate Amino Transferase 25 U/L (14-36); Bilirubin,Total 0.4 mg/dL (0.2-1.3); INR 0.9; Lipase 102 U/L (23-300); Prothrombin Time 12.6 Seconds (11.1-14.7)
[2020-07-03 18:52] LABS: Partial Thromboplastin Time 28.4 SECONDS (22.3-36.8)
[2020-07-03 19:02] LABS: Troponin I < 0.012 ng/mL (0.000-0.034)
--- NOTE | 2020-07-03 21:19 | ADMGEN ---
This patient, Sri Ch, was admitted to IMU Room 202-. Patient/family oriented to hospital policies and general routines including ID bracelet, bed and alarms, visiting hours, pain management, procedures, bathroom and other care routines, personal items, smoking policy, room service/diet, and visiting hours. Information on how to activate the Rapid Response Team has been discussed. Patient/Family are encouraged to report perceived risks to care and to ask questions if they do not understand what they are told or what they should do.
[2020-07-03 21:38] LABS: Troponin I 0.018 ng/mL (0.000-0.034)
[2020-07-03 23:53] LABS: Troponin I 0.023 ng/mL (0.000-0.034)
[2020-07-04] VITALS (9 sets, daily range): BP systolic 132–146; BP diastolic 45–48; PULSE 58–68; RESP 16–20; TEMP 35.8–36.6; O2SAT 97–98
[2020-07-04] MEDS: ACETAMINOPHEN 325 MG TABLET 650 MG PO (00:17)
[2020-07-04] MEDS: METOPROLOL SUCCINATE EXT REL 50 MG TABCR PO (00:17)
--- NOTE | 2020-07-04 03:32 | PM.IMHP ---
H&P: HPI History of Present Illness Date/Time: 07/04/20 03:32 Chief Complaint: chest pain Narrative: Patient presents to emergency department from home for chest pain. Patient states for the last week she has had intermittent episodes of chest pain from the lower ribs up to her neck with tingling in her bilateral arms she states that these episodes are intermittent and have been approximately 2 times a day with symptoms last anywhere from several minutes to an hour. She states the symptoms usually resolve when she lays down she denies any fevers or chills shortness of breath nausea vomiting or diarrhea. She does note intermittent upper abdominal pain as well patient states that she was having pain earlier but is resolved at this time. Patient does states she has a history of valvular heart disease and is followed by Dr. Price but denies history of stents. initail EKG with no acute change.s torponins negative. CT abodmen done showed no acute findings. CXR showed mild cardiomegaly, aortic atheroscleoris and bilatearl hyperinflation suggesting COPD. she also repots that she recenlty had echo done with Dr. Tejada and findings were fairly stable. Review of Systems Review of Systems: Narrative: - CONSTITUTIONAL: Denies weight loss, fever and chills. - HEENT: Denies changes in vision and hearing - RESPIRATORY: Denies SOB and cough. - CV: reports chest pain, no palpitations - GI: Denies abdominal pain, nausea, vomiting and diarrhea. - : Denies dysuria and urinary frequency. - MSK: Denies myalgia and joint pain. - SKIN: Denies rash and pruritus. - NEUROLOGICAL: Denies headache and syncope. - PSYCHIATRIC: Denies recent changes in mood. Denies anxiety and depression. All systems reviewed & are unremarkable except as noted in HPI and below PMFSH Past Medical History Medical History (Updated 07/03/20 @ 20:11 by Yosi Marvin DO) Aortic stenosis Hypertension Hypothyroidism Temporal arteritis Family History Family History Mother Gallbladder cancer Heart disease Father Heart disease Social History Social History Smoking status: Never smoker Alcohol intake: never Substance use: never Substance use type: does not use Gender identity (if verbalized by the patient): Female Spiritual care concerns: No Meds Home Medications and Allergies Home Medications Medication Instructions Recorded Confirmed Type alendronate 70 mg PO WEEKLY 10/02/19 07/03/20 History calcitriol 0.25 mcg PO DAILY 10/02/19 07/03/20 History lansoprazole 30 mg PO DAILY 10/02/19 07/03/20 History levothyroxine [Synthroid] 50 mcg PO DAILY 10/02/19 07/03/20 History metoprolol succinate 50 mg PO QPM 10/02/19 07/03/20 History sodium chloride 500 mg PO BID #30 tablet 10/07/19 07/03/20 Rx acetaminophen [Tylenol] 650 mg PO QID PRN 07/03/20 07/03/20 History aspirin [Adult Low Dose Aspirin] 81 mg PO DAILY 07/03/20 07/03/20 History nifedipine [Procardia XL] 30 mg PO QAM 07/03/20 07/03/20 History Allergies Allergy/AdvReac Type Severity Reaction Status Date / Time No Known Allergies Allergy Verified 10/02/19 02:29 Vital Signs Vital Signs - 24 hr 07/03/20 17:47 07/03/20 17:49 07/03/20 17:50 Temperature Pulse Rate 88 82 82 Respiratory Rate 19 15 19 Blood Pressure 196/57 H 181/56 H Pulse Oximetry 98 99 96 07/03/20 18:04 07/03/20 18:05 07/03/20 18:15 Temperature Pulse Rate 79 77 72 Respiratory Rate 20 19 18 Blood Pressure 165/58 H Pulse Oximetry 99 99 99 07/03/20 18:17 07/03/20 18:18 07/03/20 18:22 Temperature 98.3 F Pulse Rate 78 74 75 Respiratory Rate 16 13 14 Blood Pressure 159/85 H 159/85 H Pulse Oximetry 100 100 99 07/03/20 18:24 07/03/20 18:30 07/03/20 18:34 Temperature Pulse Rate 74 72 70 Respiratory Rate 17 16 Blood Pressure 160/46 H Pulse Oximetry 98 98 07/03/20 18
[2020-07-04 05:20] LABS: Basophils Percent Auto 0.5 % (0.2-1.2); Eosinophils Absolute Auto 0.2 K/mm3 (0-0.3); Eosinophils Percent Auto 2.3 % (0-4.4); Hematocrit 34.2 % (37.0-47.0); Hemoglobin 11.2 g/dL (12.0-15.0); Immature Granulocyte Absolute 0.02 K/mm3 (0.00-0.031); Immature Granulocyte Percent A 0.3 % (0-0.5); Lymphocytes Absolute Auto 2.24 K/mm3 (0.9-3.2); Lymphocytes Percent Auto 29.9 % (18.3-44.2); Mean Corpuscular HGB Conc 32.7 g/dl (32-36); Mean Corpuscular Hemoglobin 29.7 pg (26-34); Mean Corpuscular Volume 90.7 fl (80-100); Mean Platelet Volume 10.6 fl (7.4-10.4); Monocytes Absolute Auto 0.8 K/mm3 (0.1-0.6); Monocytes Percent Auto 11.2 % (2.6-8.5); Neutrophils Absolute Auto 4.2 K/mm3 (1.3-6.7); Neutrophils Percent Auto 55.8 % (45.5-73.1); Platelet Count Result 224 k/mm3 (150-375); Red Blood Count 3.77 M/mm3 (4.2-5.4); Red Cell Distribution Width 12.2 % (11.5-14.5); White Blood Count 7.5 K/mm3 (4.5-10.0)
[2020-07-04 05:36] LABS: Anion Gap 5 mmol/L (8-16); Blood Urea Nitrogen 23 mg/dL (7-17); Calcium 9.2 mg/dL (8.4-10.2); Carbon Dioxide 28 mmol/L (22-30); Chloride 105 mmol/L (98-107); Cholesterol 158 mg/dL (0-200); Estimated CRCL calculation 29 ml/min; Estimated Glomerular Filt Rate 53; Glucose 97 mg/dL (65-105); HDL Direct 49 mg/dL; Potassium 4.1 mmol/L (3.4-5.0); Sodium 138 mmol/L (137-145); Triglycerides 135 mg/dL (<150)
[2020-07-04 05:40] LABS: Hemoglobin A1C 5.5 % (<5.7)
[2020-07-04 05:46] LABS: LDL Cholesterol Direct 69 mg/dL
[2020-07-04] MEDS: LEVOTHYROXINE SODIUM 50 MCG TABLET PO (05:46)
--- NOTE | 2020-07-04 07:48 | PM.IMPN ---
Progress Note: A&P Assessment and Plan (1) Chest pain: Code(s): R07.9 - Chest pain, unspecified Status: Acute Assessment and Plan: Two sets of cardiac enzymes are negative. Cardiology consulted. (2) Hypertension: Qualifiers: Hypertension type: essential hypertension Qualified Code(s): I10 - Essential (primary) hypertension Code(s): I10 - Essential (primary) hypertension Status: Acute Assessment and Plan: Stable on medication (3) Aortic stenosis: Qualifiers: Cardiac valve disease etiology: etiology unspecified Qualified Code(s): I35.0 - Nonrheumatic aortic (valve) stenosis Code(s): I35.0 - Nonrheumatic aortic (valve) stenosis Status: Chronic Assessment and Plan: cardiology consult ordered. (4) Hypothyroidism: Qualifiers: Hypothyroidism type: unspecified Qualified Code(s): E03.9 - Hypothyroidism, unspecified Code(s): E03.9 - Hypothyroidism, unspecified Status: Chronic Assessment and Plan: stable on medications Additional Plan # atypical chest pain: hx of CAD. intial ekg and troponin negative. serial troponins. Cadiology consutlation. nitro prn for chest pains. aspirin, bb, statin. plan for stress test vs cath, depnding on the clnical course. last stress test in 2018 which was negaive. no prior hx of CAD that we know of. she also has moderate , worsenig of this could be another however anticipate it to be exertional which her chest pain is not. she does have hx of GERD and also is on alendronate which can exacerbate these symptoms. possibliities could be entertained once her cardiac workup is unrevealing. will cancel previously planned echo as she just recently had her echo done. I do not see the report in the EMR> await Dr. Tejada evaluation. continue with PPI that she usually takes. # Abdominal pain; lipase normal. CT abdomen negative for any acute findings. # HTN:home meds # Hypothyroidsim: home med # moderate aortic stenosis, mild to moderate MR, moderate to severe TR # hx of symptoamtic PVS s/p PVC ablation # DVT proph: lovenox # FUll code Will continue current plan of care and treatment. Cardiology consult ordered. Two sets of cardiac enzymes are negative. Subjective Date/time seen: 07/04/20 07:48 Patient was seen during the morning rounds. Patient was admitted with chest pain. However at present time patient denies any chest pain . No shortness of breath, no abdominal pain, nausea or vomiting. Mood stable. Review of Systems Review of Systems: All systems reviewed & are unremarkable except as noted in HPI and below Exam Narrative: Exam Narrative: GENERAL APPEARANCE: No acute distress, nontoxic, resting in bed EYES: EOMI, PERRLA HEENT: Normocephalic, atraumatic RESPIRATORY: No respiratory distress Clear to auscultation bilaterally with no rhonchi wheezing or rales. CARDIOVASCULAR: Regular rate and rhythm with grade 3/6 systolic ejection murmur, bilateral radial pulse 2+ ABDOMINAL: Soft, nondistended, MUSCULOSKELETAl: Moves all extremities. No clubbing, cyanosis or edema. NEURO: Awake and alert. Following commands, speech normal, no focal deficits SKIN:: Warm, dry. No rashes lesions or abrasions PSYCHIATRIC: Normal affect/mood, Objective Data Vital Signs Vital Signs: Vital Signs - 24 hr 07/03/20 17:47 07/03/20 17:49 07/03/20 17:50 Temperature Pulse Rate 88 82 82 Respiratory Rate 19 15 19 Blood Pressure 196/57 H 181/56 H Pulse Oximetry 98 99 96 07/03/20 18:04 07/03/20 18:05 07/03/20 18:15 Temperature Pulse Rate 79 77 72 Respiratory Rate 20 19 18 Blood Pressure 165/58 H Pulse Oximetry 99 99 99 07/03/20 18:17 07/03/20 18:18 07/03/20 18:22 Temperature 36.8 C Pulse Rate 78 74 75 Respiratory Rate 16 13 14 Blood Pressure 159/85 H 159/85 H Pulse Oximetry 100 100 99 07/03/20 18:24 07/03/20 18:30 07/03/20 18:34 Temperature Pulse Rate 74 72 70 Respirat
[2020-07-04] MEDS: PANTOPRAZOLE 40 MG TABLET PO (09:01)
[2020-07-04] MEDS: calcitrioL 0.25 MCG CAPSULE PO (09:01)
[2020-07-04] MEDS: NIFEdipine 30 MG TAB.ER.24 PO (09:01)
[2020-07-04] MEDS: ASPIRIN 81 MG CHEWABLE TABLET PO (09:01)
[2020-07-04] MEDS: HEPARIN SODIUM 5,000 UNITS/ML VIAL 5000 UNITS SUB-Q (09:02)
[2020-07-04] MEDS: SODIUM CHLORIDE 500 MG TABLET PO (09:05)
--- NOTE | 2020-07-04 11:05 | PM.CNCAR ---
Assessment and Plan Assessment and plan (1) Chest pain: Code(s): R07.9 - Chest pain, unspecified Status: Acute Assessment and Plan: Symptoms highly atypical, self-limited, nonexertional and in fact for more aptly described as abdominal discomfort with radiation into the chest. No recurrence since admission. Ruled out for myocardial infarction with negative enzymes no ischemic EKG changes. Multiple considerations discussed at length with patient and her daughter at bedside. Patient associates increased palpitations and symptomatic PVCs with the spells deflate as well as occasional notation of elevated BP. Disposition per hospitalist service this afternoon to picker tender helper monitor from the office. If she is not discharged prior to for p.m. she will need to picker tender helper this monitor tomorrow. She will continue with her scheduled appointment early July for recommendations to follow. Spent 75 minutes in the care of this patient at bedside, chart review patient and family discussions. (2) Hypertension: Qualifiers: Hypertension type: essential hypertension Qualified Code(s): I10 - Essential (primary) hypertension Code(s): I10 - Essential (primary) hypertension Status: Acute Assessment and Plan: Generally home blood pressures 130-140. She also reports symptomatic hypotension with more aggressive medication changes in the past. BP generally stable but with lability as above. Continue current medical therapy. Advised to monitor blood pressure twice daily and with associated symptoms and report readings for correlation. Recommendations to follow in this regard. (3) Symptomatic PVCs: Code(s): I49.3 - Ventricular premature depolarization Status: Acute Assessment and Plan: As above. Outpatient 7 day event monitor to correlate episodes with PVCs and palpitations with recommendations to follow. No changes in medical therapy until further confirmation in this regard. Patient and daughter verbalized understanding and agreed with plan of care. No sustained or nonsustained VT on telemetry. (4) Aortic stenosis: Qualifiers: Cardiac valve disease etiology: etiology unspecified Qualified Code(s): I35.0 - Nonrheumatic aortic (valve) stenosis Code(s): I35.0 - Nonrheumatic aortic (valve) stenosis Status: Chronic Assessment and Plan: Moderate severity aortic valve area 1.2 centimeters squared. Will continue to monitor clinically. (5) Pulmonary hypertension: Code(s): I27.20 - Pulmonary hypertension, unspecified Status: Acute Assessment and Plan: Mild, RVSP 41 mmHg. Moderate to severe TR. Asymptomatic in this regard. (6) Aortic aneurysm: Code(s): I71.9 - Aortic aneurysm of unspecified site, without rupture Status: Acute Assessment and Plan: As above, only now discovered upon review of CT scan from July 2017 in conjunction with my request to review CT abdomen pelvis for aneurysm this admission. No abdominal aortic aneurysm observed however thoracic aorta enlargement 4.0 cm mentioned verbally by Radiology but not in report at that time. This is the first time I (or the patient) have heard of this possible issue. We will follow through with CT angiogram of the chest on an outpatient basis for further clarification. We discussed the pathophysiology, potential dangers with large min and or rupture. Clinically this has not occurred nor is the explanation for her admission. Unlikely but not impossible for her to have developed severe and/or clinically significant aortic dilatation within the past 3 years but cannot entirely exclude. Counseled on red flag symptoms, severe/tearing pain in her abdomen/chest, shortness of breath near-syncope or syncope. History of Present Illness History of Present Illness Consult date/time: Date of service: 07/04/20 11:05 Cardiology consultation at the request of Dr. Zamora for our opinion regarding a
--- NOTE | 2020-07-04 11:47 | PCCARD ---
Echo cancelled per Dr. Price. Pt had one recently in [facility] office. Jeremy
--- NOTE | 2020-07-25 11:17 | PM.DS ---
DS: Admitting Diagnosis Admitting Diagnosis Admitting Diagnosis: Chest Pain Hypertension DS: Discharge Diagnosis Discharge Diagnosis (1) Chest pain: Code(s): R07.9 - Chest pain, unspecified Status: Acute Assessment and Plan: Two sets of cardiac enzymes are negative. Cardiology consulted. (2) Hypertension: Qualifiers: Hypertension type: essential hypertension Qualified Code(s): I10 - Essential (primary) hypertension Code(s): I10 - Essential (primary) hypertension Status: Acute Assessment and Plan: Stable on medication (3) Aortic stenosis: Qualifiers: Cardiac valve disease etiology: etiology unspecified Qualified Code(s): I35.0 - Nonrheumatic aortic (valve) stenosis Code(s): I35.0 - Nonrheumatic aortic (valve) stenosis Status: Chronic Assessment and Plan: cardiology consult ordered. (4) Hypothyroidism: Qualifiers: Hypothyroidism type: unspecified Qualified Code(s): E03.9 - Hypothyroidism, unspecified Code(s): E03.9 - Hypothyroidism, unspecified Status: Chronic Assessment and Plan: stable on medications DS: Summary Hospital Course Reason for hospitalization: Chest Pain Hospital Course: Patient admitted with complaints of having chest pain. Rule out Mi protoicol. was followed. Patient was treated medically. Patient dischrged home is stable condition Time spent discussing smoking cessation with patient: 3 to 10 minutes Status at Discharge Functional status at discharge: independent ambulation Overall status at discharge: patient is back to baseline Time Spent with Patient Time attestation: Total time spent providing and/or coordinating discharge services: Time spent: Less than 30 minutes Exam Narrative: Exam Narrative: GENERAL APPEARANCE: No acute distress, nontoxic, resting in bed EYES: EOMI, PERRLA HEENT: Normocephalic, atraumatic RESPIRATORY: No respiratory distress Clear to auscultation bilaterally with no rhonchi wheezing or rales. CARDIOVASCULAR: Regular rate and rhythm with grade 3/6 systolic ejection murmur, bilateral radial pulse 2+ ABDOMINAL: Soft, nondistended, MUSCULOSKELETAl: Moves all extremities. No clubbing, cyanosis or edema. NEURO: Awake and alert. Following commands, speech normal, no focal deficits SKIN:: Warm, dry. No rashes lesions or abrasions PSYCHIATRIC: Normal affect/mood, Discharge Plan Discharge Attending physician on discharge: Sera Consulting providers: Jose Price ; Juan Ko ; Daren Echevarria ; Kaushik Salvador Discharging Clinician: Sera Anticipated Discharge Date/Time: 07/04/20 15:23 Patient Disposition: Home, Self-Care Activity: as tolerated Diet: as tolerated, heart healthy and renal Patient Instructions: Antibiotic Form, Heart Failure (DC), Chest Pain (DC), Chronic Hypertension (DC) Stand Alone Forms: General Discharge Information Follow-up/Referrals: Jose Price MD [Physician] - Discharge Medications: Continued metoprolol succinate 50 mg tablet extended release 24 hr 50 mg PO QPM RF: 0 alendronate 70 mg tablet 70 mg PO WEEKLY RF: 0 levothyroxine [Synthroid] 50 mcg tablet 50 mcg PO DAILY RF: 0 lansoprazole 30 mg capsule,delayed release(DR/EC) 30 mg PO DAILY RF: 0 calcitriol 0.25 mcg capsule 0.25 mcg PO DAILY RF: 0 sodium chloride 1 gram tablet 500 mg PO BID Qty: 30 RF: 1 acetaminophen [Tylenol] 325 mg Tablet 650 mg PO QID PRN (Reason: Pain (Scale Score 1-3)) RF: 0 aspirin 81 mg Tablet 81 mg PO DAILY RF: 0 nifedipine [Procardia XL] 30 mg tablet extended release 24hr 30 mg PO QAM RF: 0 Date of admission: 07/03/20 20:05 Primary Care Provider: Sussy,Oren Auugste Admitting Provider: Ernesto Jha Attending physician on admission: Gregory Zamora Condition: Stable
== END 2020-07-04 15:45 | disposition home or self-care (01) ==
LOC: ANHED 20:11 → ANHIMU 22:23
PROVIDERS: Admitting Provider Internal Medicine; Emergency Provider Emergency Medicine; PCP Internal Medicine; Visit Provider Internal Medicine
DX: R07.9 Chest pain, unspecified (principal); I10 Essential (primary) hypertension; I49.3 Ventricular premature depolarization; I35.0 Nonrheumatic aortic (valve) stenosis; E03.9 Hypothyroidism, unspecified; I27.20 Pulmonary hypertension, unspecified; I71.9 Aortic aneurysm of unspecified site, without rupture; Z79.899 Other long term (current) drug therapy
CPT/HCPCS: 36415; 71046; 74177; 80048; 80061; 80076; 83036; 83690; 84484; 85025; 85610; 85730; 93005; 96372; 99285; A9270; G0378; J1644; Q9967

== ENCOUNTER 2020-07-30 13:28 | Outpatient (CLI) | payer MEDICARE, BC, SELFPAY ==
--- NOTE | ~2020-07-30 | CT_ITS ---
EXAMINATION: CTA chest DATE: 07/30/2020 14:21 INDICATION: Aortic aneurysm follow-up TECHNIQUE: Computed tomography angiography (CTA) of the chest was performed with 100 mL Omnipaque-350 intravenous contrast timed to evaluate the pulmonary arteries. Coronal maximum intensity projection 3D-reconstructions were created by the technologist. Automated exposure control and iterative reconst ruction technique were employed. Exam dose: 164.00 mGy-cm total exam DLP. COMPARISON: 07/19/[address] chest examinations FINDINGS: Aortic diameter is stable since 07/19/2017, with the following measurements unchanged since then: The ascending aortic diameter measures up to 3.9 cm diameter. The aortic arch diameter measures up to 2.8 cm diameter. Descending thoracic aorta measures 2.3 cm diameter. No thoracic aortic dissection is detected. Cardiomegaly. No pericardial effusion. No hilar or mediastinal mass lesion or lymphadenopathy. Bilateral apical scarring. Mild emphysematous changes. No pulmonary infiltrate or consolidation. Status post cholecystectomy. Diffuse hepatic steatosis. Normal morphology of the adrenal glands. IMPRESSION: Stable size of thoracic aorta since 07/19/2017, with ascending aorta measuring up to 3.9 c m diameter Cardiomegaly Hepatic steatosis Status post cholecystectomy Reviewed, dictated and finalized at [facility]. Reviewed, dictated and finalized at [facility]. IMPRESSION: Stable size of thoracic aorta since 07/19/2017, with ascending aorta measuring up to 3.9 cm diameter Cardiomegaly Hepatic steatosis Status post cholecystectomy
== END 2020-07-30 13:29 | disposition home or self-care (01) ==
PROVIDERS: PCP Internal Medicine; Visit Provider Internal Medicine Cardiovascular Disease
DX: I35.0 Nonrheumatic aortic (valve) stenosis (principal); I35.1 Nonrheumatic aortic (valve) insufficiency; I71.2 Thoracic aortic aneurysm, without rupture; I51.7 Cardiomegaly; K76.0 Fatty (change of) liver, not elsewhere classified; Z90.49 Acquired absence of other specified parts of digestive tract
CPT/HCPCS: 71275; Q9967

== ENCOUNTER 2021-07-17 13:49 | Emergency (ER) | payer MEDICARE, BC, SELFPAY ==
--- NOTE | ~2021-07-17 | XR_ITS ---
EXAMINATION: XR chest 2V DATE: 07/17/2021 14:59 INDICATION: Weakness and shortness of breath TECHNIQUE: Frontal and lateral views of the chest are obtained COMPARISON: 07/03/2020 FINDINGS: The lungs are free of acute opacities. There is no pleural effusion or pneumothorax. The ca rdiomediastinal silhouette is normal. There is mild thoracic spondylosis. IMPRESSION: 1. No acute cardiopulmonary abnormality. Reviewed, dictated and finalized at [facility].
[2021-07-17 13:53] VITALS: BP 120/70; PULSE 85; RESP 16; TEMP 36.2; O2SAT 97
--- NOTE | 2021-07-17 13:58 | ECG_ITS ---
Measurements Intervals [place] Rate: 75 P: 35 [place]: 132 QRS: -26 QRSD: 86 T: 36 QT: 362 QTc: 407 Interpretive Statements SINUS RHYTHM POSSIBLE RIGHT VENTRICULAR CONDUCTION DELAY [RSR (QR) IN V1/V2] CANNOT RULE OUT SEPTAL MYOCARDIAL INFARCTION , PROBABLY OLD [40+ ms Q WAVE IN V1/V2] ABNORMAL ECG COMPARED TO ECG 07/03/2020 17:53:55 NO SIGNIFICANT CHANGE Electronically Signed On 07-17-2021 17:57:24 CDT by Jose Price M.D.
[2021-07-17 14:31] LABS: Alanine Aminotransferase 18 U/L (6-35); Albumin Level 4.8 g/dL (3.5-5.1); Alkaline Phosphatase 68 U/L (38-126); Anion Gap 8 mmol/L (8-16); Aspartate Amino Transferase 28 U/L (14-36); Basophils Percent Auto 0.4 % (0.2-1.2); Bilirubin,Total 0.7 mg/dL (0.2-1.3); Blood Urea Nitrogen 18 mg/dL (7-17); Calcium 9.2 mg/dL (8.4-10.2); Carbon Dioxide 25 mmol/L (22-30); Chloride 103 mmol/L (98-107); Eosinophils Percent Auto 0.4 % (0-4.4); Estimated CRCL calculation 26 ml/min; Estimated Glomerular Filt Rate 47; Glucose 132 mg/dL (65-110); Hematocrit 39.6 % (37.0-47.0); Hemoglobin 12.4 g/dL (12.0-15.0); Immature Granulocyte Absolute 0.01 K/mm3 (0.00-0.031); Immature Granulocyte Percent A 0.1 % (0-0.5); Lymphocytes Absolute Auto 1.61 K/mm3 (0.9-3.2); Lymphocytes Percent Auto 23.7 % (18.3-44.2); Mean Corpuscular HGB Conc 31.3 g/dl (32-36); Mean Corpuscular Hemoglobin 29.7 pg (26-34); Mean Platelet Volume 10.5 fl (7.4-10.4); Monocytes Absolute Auto 0.6 K/mm3 (0.1-0.6); Monocytes Percent Auto 8.8 % (2.6-8.5); Neutrophils Absolute Auto 4.5 K/mm3 (1.3-6.7); Neutrophils Percent Auto 66.6 % (45.5-73.1); Platelet Count Result 220 k/mm3 (150-375); Potassium 4.1 mmol/L (3.4-5.0); Red Blood Count 4.17 M/mm3 (4.2-5.4); Red Cell Distribution Width 12.2 % (11.5-14.5); Sodium 136 mmol/L (137-145); White Blood Count 6.8 K/mm3 (4.5-10.0)
[2021-07-17 15:06] VITALS: PULSE 69
[2021-07-17 15:07] VITALS: BP 170/75; PULSE 70; RESP 13; O2SAT 98
[2021-07-17] MEDS: SODIUM CHLORIDE 0.9% IV 500 ML 999 ML IV CONT (15:20)
[2021-07-17 16:15] LABS: Appearance Urine Clear (Clear); Bilirubin Urine Negative (Negative); Blood Urine Trace-lysed (Negative); Color Urine Yellow (Yellow); Glucose Urine UA Negative (Negative); Ketones Urine Negative (Negative); Leukocyte Esterase Ur 2+ LEU/UL (Negative); Nitrate Urine Negative (Negative); Protein Urine Negative (Negative); Specific Grav Ur 1.015 (1.001-1.035); Urobilinogen Urine 0.2 mg/dL (<2.0)
[2021-07-17 16:23] LABS: RBC Urine 0-2 /hpf (0-2); WBC Urine 21-30 /hpf
[2021-07-17 16:24] LABS: Add Urine Microscopic? YES
--- NOTE | 2021-07-17 16:36 | ED.WEAKNESS ---
HPI - Weakness General Chief complaint: Weakness Stated complaint: WEAKNESS, NEAR SYNCOPE Time Seen by Provider: 07/17/21 15:05 Source: patient History of Present Illness HPI Narrative: Patient presents with weakness nausea and dizziness. He has had symptoms for a few days couple days ago she was walking from her kitchen to her couch she had some lightheadedness sat down and the symptoms resolved. Reports she has had some decreased appetite due to her nausea over the past few days denies any vomiting or diarrhea denies any recent fevers, cough, congestion she denies any abdominal pain or chest pain. Does report some mild intermittent shortness of breath. Related Data Home Medications Medication Instructions Recorded Confirmed alendronate 70 mg tablet 70 mg PO WEEKLY 10/02/19 07/03/20 calcitriol 0.25 mcg capsule 0.25 mcg PO DAILY 10/02/19 07/03/20 lansoprazole 30 mg capsule,delayed 30 mg PO DAILY 10/02/19 07/03/20 release levothyroxine 50 mcg tablet 50 mcg PO DAILY 10/02/19 07/03/20 (Synthroid) metoprolol succinate 50 mg 50 mg PO QPM 10/02/19 07/03/20 tablet,extended release 24 hr acetaminophen 325 mg tablet 650 mg PO QID PRN Pain (Scale 07/03/20 07/03/20 (Tylenol) Score 1-3) aspirin 81 mg tablet 81 mg PO DAILY 07/03/20 07/03/20 nifedipine 30 mg tablet,extended 30 mg PO QAM 07/03/20 07/03/20 release 24 hr (Procardia XL) Allergies Allergy/AdvReac Type Severity Reaction Status Date / Time No Known Allergies Allergy Verified 10/02/19 02:29 Review of Systems Review of Systems: CONSTITUTIONAL: Denies fever, chills, or sweats. EYES: Denies visual changes, redness, or discharge. ENT: Denies rhinorrhea, congestion, sore throat, or otalgia. CARDIOVASCULAR: Denies chest pain, palpitations, or edema. RESPIRATORY: Denies cough. GASTROINTESTINAL: Denies abdominal pain, vomiting, or diarrhea. GENITOURINARY: Denies dysuria or hematuria. SKIN: Denies rash or itching. MUSCULOSKELETAL: Denies back pain, joint pain, or myalgia. NEUROLOGIC: Denies headache, numbness, dizziness, or weakness. PSYCHIATRIC: Denies anxiety or depression. All systems reviewed & are unremarkable except as noted in HPI and below PMFSH Past Medical History Medical History (Updated 07/17/21 @ 16:49 by Ifeanyi Sidhu MD) Aortic stenosis Hypertension Hypothyroidism Temporal arteritis Family History Family History Mother Gallbladder cancer Heart disease Father Heart disease Social History Social History Smoking status: Never smoker Alcohol intake: never Substance use: never Substance use type: does not use Gender identity (if verbalized by the patient): Female Spiritual care concerns: No Exam Narrative: GENERAL: Well-appearing, well-nourished, and in no acute distress. HEAD: Normocephalic, atraumatic. EYES: PERRLA and EOMI. ENT: Nares clear, no rhinorrhea or epistaxis. Mucous membranes moist. NECK: Supple. No masses. No JVD CHEST: Clear to auscultation. No respiratory distress. No wheezes rales or rhonchi HEART: Regular rate and rhythm. No murmur heard. Normal peripheral pulses. ABDOMEN: Soft, nontender, nondistended EXTREMITIES: Normal range of motion. No edema. SKIN: Warm, dry, no rash. NEURO: No focal deficits. Alert and oriented x3. PSYCH: Normal mood and affect. Course Reevaluation(s) Reevaluation #1: Patient ports feeling improved results and plan reviewed with patient. Patient is comfortable outpatient plan. Date: 07/17/21 Time: 16:38 Vital Signs Vital signs: Vital Signs Temperature 36.2 C L 07/17/21 13:53 Pulse Rate 85 07/17/21 13:53 Respiratory Rate 16 07/17/21 13:53 Blood Pressure 120/70 07/17/21 13:53 Pulse Oximetry 97 07/17/21 13:53 Oxygen Delivery Room Air 07/17/21 13:53 Temperature 36.2 C L 07/17/21 13:53 Pulse Rate 72 07/17/21 16:55 Respirato
[2021-07-17 16:55] VITALS: BP 160/48; PULSE 72; RESP 18; O2SAT 99
== END 2021-07-17 16:57 | disposition home or self-care (01) ==
PROVIDERS: Emergency Provider Emergency Medicine; PCP Internal Medicine Cardiovascular Disease
DX: N39.0 Urinary tract infection, site not specified (principal); R53.1 Weakness; R42 Dizziness and giddiness; R11.0 Nausea; I35.0 Nonrheumatic aortic (valve) stenosis; I10 Essential (primary) hypertension; E03.9 Hypothyroidism, unspecified; M31.6 Other giant cell arteritis; Z79.82 Long term (current) use of aspirin; R94.31 Abnormal electrocardiogram [ECG] [EKG]
CPT/HCPCS: 36415; 71046; 80053; 81001; 85025; 87086; 93005; 96360; 99283; J7040

== ENCOUNTER 2021-08-27 20:31 | Emergency (ER) | payer MEDICARE, BC, SELFPAY ==
--- NOTE | ~2021-08-27 | XR_ITS ---
EXAMINATION: XR chest 2V 08/27/2021 19:44 INDICATION: Shortness of breath and chest palpitations. Hypertension. PROCEDURE: 2 view chest COMPARISON: Comparison to multiple prior studies sequentially, with oldest reviewed study dated 10/01. FINDINGS: The lungs are clear. The cardiomediastinal silhouette is within normal limits. There are no pleural effusions. There is no pneumothorax suspected. There is atherosclerosis of the aorta. IMPRESSION: 1: NO ACUTE CARDIOPULMONARY DISEASE. Reviewed, dictated and finalized at location A.
[2021-08-27 19:26] VITALS: BP 156/47; PULSE 58; RESP 14; TEMP 36.4; O2SAT 97
--- NOTE | 2021-08-27 19:29 | ECG_ITS ---
Measurements Intervals [place] Rate: 82 P: 65 [place]: 119 QRS: 43 QRSD: 89 T: 57 QT: 374 QTc: 439 Interpretive Statements SINUS RHYTHM WITH SHORT DE INTERVAL SUPRAVENTRICLAR TRIGEMINY AND ATRIAL PREMATURE COMPLEX POSSIBLE LEFT ATRIAL ENLARGEMENT INCOMPLETE RIGHT BUNDLE BRANCH BLOCK DELAYED PRECORDIAL R/S TRANSITION BASELINE ARTIFACT- I, III, AVR, AVL, AVF, V1-V6 ABNORMAL ECG Electronically Signed On 08-27-2021 19:48:49 CDT by Daren Echevarria D.O.
[2021-08-27 19:43] LABS: Basophils Percent Auto 0.4 % (0.2-1.2); Eosinophils Absolute Auto 0.1 K/mm3 (0-0.3); Eosinophils Percent Auto 1.5 % (0-4.4); Hematocrit 36.6 % (37.0-47.0); Hemoglobin 11.5 g/dL (12.0-15.0); Immature Granulocyte Absolute 0.04 K/mm3 (0.00-0.031); Immature Granulocyte Percent A 0.5 % (0-0.5); Lymphocytes Absolute Auto 1.88 K/mm3 (0.9-3.2); Lymphocytes Percent Auto 22.3 % (18.3-44.2); Mean Corpuscular HGB Conc 31.4 g/dl (32-36); Mean Corpuscular Hemoglobin 29.5 pg (26-34); Mean Corpuscular Volume 93.8 fl (80-100); Mean Platelet Volume 9.8 fl (7.4-10.4); Monocytes Absolute Auto 0.9 K/mm3 (0.1-0.6); Monocytes Percent Auto 10.1 % (2.6-8.5); Neutrophils Absolute Auto 5.5 K/mm3 (1.3-6.7); Neutrophils Percent Auto 65.2 % (45.5-73.1); Platelet Count Result 272 k/mm3 (150-375); Red Cell Distribution Width 12.6 % (11.5-14.5); White Blood Count 8.4 K/mm3 (4.5-10.0)
[2021-08-27 19:53] LABS: Alanine Aminotransferase 13 U/L (6-35); Albumin Level 4.4 g/dL (3.5-5.1); Alkaline Phosphatase 75 U/L (38-126); Anion Gap 6 mmol/L (8-16); Aspartate Amino Transferase 22 U/L (14-36); Bilirubin,Total 0.4 mg/dL (0.2-1.3); Blood Urea Nitrogen 19 mg/dL (7-17); Calcium 9.5 mg/dL (8.4-10.2); Carbon Dioxide 28 mmol/L (22-30); Chloride 101 mmol/L (98-107); Estimated CRCL calculation 28 ml/min; Estimated Glomerular Filt Rate 53; Glucose 119 mg/dL (65-110); Lipase 155 U/L (23-300); Potassium 4.4 mmol/L (3.4-5.0); Sodium 135 mmol/L (137-145)
[2021-08-27 19:55] LABS: Prothrombin Time 12.9 Seconds (11.1-14.7)
[2021-08-27 19:56] VITALS: BP 155/49; PULSE 78; RESP 18; O2SAT 98
[2021-08-27 19:56] LABS: Partial Thromboplastin Time 33.8 SECONDS (22.3-36.8)
[2021-08-27 20:04] LABS: Troponin I < 0.012 ng/mL (0.000-0.034)
[2021-08-27 20:42] LABS: Magnesium 2.1 mg/dL (1.6-2.3)
--- NOTE | 2021-08-27 21:32 | ED.GENADULT ---
HPI - General Adult General Chief complaint: Arrhythmia/Palpitations Stated complaint: PVC, HTN History of Present Illness HPI narrative: Patient is an 86-year-old female who presents ER with palpitations. Reports she has history of PVCs and she is feeling them occur more frequently. Ongoing over the last day. No loss of consciousness or dizziness. No chest pain or shortness of breath. She has been taking her home medications without issue. She sees Dr. Price. No change in diet. Has not been taking an increased amount of caffeine. Related Data Home Medications Medication Instructions Recorded Confirmed alendronate 70 mg tablet tablet PO 08/27/21 buspirone 5 mg tablet tablet 08/27/21 levothyroxine 50 mcg tablet tablet 08/27/21 (Synthroid) metoprolol succinate 50 mg tablet PO 08/27/21 tablet,extended release 24 hr trazodone 50 mg tablet tablet 08/27/21 Allergies Allergy/AdvReac Type Severity Reaction Status Date / Time No Known Allergies Allergy Verified 08/27/21 19:58 Review of Systems Review of Systems: All systems reviewed & are unremarkable except as noted in HPI and below Constitutional: Constitutional: Denies chills and Denies fever(s) Cardiovascular: Cardiovascular: Denies chest pain, Denies rapid heart rate and Denies radiating jaw, neck or arm pain Comments: Feeling dropped beats Respiratory: Respiratory: Denies cough and Denies dyspnea Gastrointestinal: Gastrointestinal: Denies abdominal pain, Denies nausea and Denies vomiting Neurologic: Denies syncope, Denies focal weakness and Denies numbness Psychiatric: Psychiatric: Denies anxiety PMFSH Past Medical History Medical History (Updated 08/27/21 @ 21:39 by Shiva Up MD) GERD (gastroesophageal reflux disease) Hypertension Osteoporosis PVCs (premature ventricular contractions) Surgical History Surgical History (Updated 08/27/21 @ 21:36 by Shiva Up MD) No pertinent past surgical history Social History Social History (Updated 08/27/21 @ 21:36 by Shiva Up MD) Smoking status: Never smoker Exam Narrative: GENERAL: Well-appearing, well-nourished, and in no acute distress. HEAD: Normocephalic, atraumatic. EYES: PERRL and EOMI. ENT: Mucous membranes moist. CHEST: Clear to auscultation. No respiratory distress. HEART: Regular rate and rhythm. Normal peripheral pulses. EXTREMITIES: Normal range of motion. No edema. NEURO: Alert and oriented x3. PSYCH: Normal mood and affect. Course Course Emergency Course: Patient resting comfortably. Informed of results. No arrhythmia here. Discharge home. Recommend follow-up with cardiology if symptoms persist. Vital Signs Vital signs: Vital Signs Temperature 97.6 F 08/27/21 19:26 Pulse Rate 58 L 08/27/21 19:26 Respiratory Rate 14 08/27/21 19:26 Blood Pressure 156/47 H 08/27/21 19:26 Pulse Oximetry 97 08/27/21 19:26 Oxygen Delivery Room Air 08/27/21 19:26 Temperature 97.6 F 08/27/21 19:26 Pulse Rate 78 08/27/21 19:56 Respiratory Rate 18 08/27/21 19:56 Blood Pressure 155/49 H 08/27/21 19:56 Pulse Oximetry 98 08/27/21 19:56 Oxygen Delivery Room Air 08/27/21 19:56 Medical Decision Making Vital Signs Vital Signs: Vital Signs Temperature 97.6 F 08/27/21 19:26 Pulse Rate 58 L 08/27/21 19:26 Respiratory Rate 14 08/27/21 19:26 Blood Pressure 156/47 H 08/27/21 19:26 Pulse Oximetry 97 08/27/21 19:26 Oxygen Delivery Room Air 08/27/21 19:26 Temperature 97.6 F 08/27/21 19:26 Pulse Rate 78 08/27/21 19:56 Respiratory Rate 18 08/27/21 19:56 Blood Pressure 155/49 H 08/27/21 19:56 Pulse Oximetry 98 08/27/21 19:56 Oxygen Delivery Room Air 08/27/21 19:56 Lab Data Result diagrams: 08/27/21 19:37 08/27/21 19:37 Labs: Lab Results 08/27/21 08/27/21 08/27/21 Range/Units 19:36 19:37 19:37 WBC 8.4 (4.5-10.0) K/mm3 RBC
[2021-08-27 22:12] VITALS: BP 155/50; PULSE 95; RESP 18; O2SAT 97
== END 2021-08-27 22:00 | disposition home or self-care (01) ==
PROVIDERS: Emergency Provider Emergency Medicine
DX: R00.2 Palpitations (principal); I10 Essential (primary) hypertension; E03.9 Hypothyroidism, unspecified; Z79.899 Other long term (current) drug therapy
CPT/HCPCS: 36415; 71046; 80053; 83690; 83735; 84484; 85025; 85610; 85730; 93005; 99284

== ENCOUNTER 2022-05-19 01:00 | Emergency (ER) | payer MEDICARE, BC, SELFPAY ==
[2022-05-19] VITALS (13 sets, daily range): BP systolic 158–183; BP diastolic 42–53; PULSE 53–63; RESP 12–20; TEMP 36.5; O2SAT 96–100
--- NOTE | ~2022-05-19 | XR_ITS ---
EXAMINATION: XR chest 2V DATE: 05/19/2022 01:47 INDICATION: Heart palpitations and chest pressure TECHNIQUE: PA and lateral views of the chest are obtained. COMPARISON: 08/27/2021 FINDINGS: The lungs are free of acute opacities. No pleural effusion or pneumothorax. The cardiomedia stinal silhouette is normal. There is mild thoracic spondylosis. IMPRESSION: 1. No acute cardiopulmonary abnormality. Reviewed, dictated and finalized at location L.
--- NOTE | 2022-05-19 01:04 | ECG_ITS ---
Measurements Intervals [place] Rate: 60 P: 28 NH: 151 QRS: 13 QRSD: 84 T: 53 QT: 424 QTc: 424 Interpretive Statements SINUS RHYTHM POSSIBLE RIGHT VENTRICULAR CONDUCTION DELAY [RSR (QR) IN V1/V2] COMPARED TO ECG 08/27/2021 19:36:41 NO SIGNIFICANT CHANGES Electronically Signed On 05-19-2022 16:01:25 CDT by Jd Wren M.D.
[2022-05-19 02:20] LABS: Basophils Percent Auto 0.4 % (0.2-1.2); Eosinophils Absolute Auto 0.1 K/mm3 (0-0.3); Eosinophils Percent Auto 1.1 % (0-4.4); Hematocrit 36.2 % (37.0-47.0); Hemoglobin 11.5 g/dL (12.0-15.0); Immature Granulocyte Absolute 0.02 K/mm3 (0.00-0.031); Immature Granulocyte Percent A 0.3 % (0-0.5); Lymphocytes Absolute Auto 1.68 K/mm3 (0.9-3.2); Lymphocytes Percent Auto 23.8 % (18.3-44.2); Mean Corpuscular HGB Conc 31.8 g/dl (32-36); Mean Corpuscular Hemoglobin 29.6 pg (26-34); Mean Corpuscular Volume 93.3 fl (80-100); Mean Platelet Volume 10.3 fl (7.4-10.4); Monocytes Absolute Auto 0.7 K/mm3 (0.1-0.6); Monocytes Percent Auto 10.3 % (2.6-8.5); Neutrophils Absolute Auto 4.5 K/mm3 (1.3-6.7); Neutrophils Percent Auto 64.1 % (45.5-73.1); Platelet Count Result 190 k/mm3 (150-375); Red Blood Count 3.88 M/mm3 (4.2-5.4); Red Cell Distribution Width 13.1 % (11.5-14.5); White Blood Count 7.1 K/mm3 (4.5-10.0)
[2022-05-19 02:30] LABS: INR 1.1; Prothrombin Time 13.4 Seconds (11.1-14.7)
[2022-05-19 02:31] LABS: Partial Thromboplastin Time 29.1 SECONDS (22.3-36.8)
[2022-05-19 02:33] LABS: Alanine Aminotransferase 18 U/L (6-35); Albumin Level 4.4 g/dL (3.5-5.1); Alkaline Phosphatase 67 U/L (38-126); Anion Gap 8 mmol/L (8-16); Aspartate Amino Transferase 24 U/L (14-36); Bilirubin,Total 0.6 mg/dL (0.2-1.3); Blood Urea Nitrogen 26 mg/dL (7-17); Carbon Dioxide 29 mmol/L (22-30); Chloride 100 mmol/L (98-107); Estimated CRCL calculation 26 ml/min; Estimated Glomerular Filt Rate 47; Glucose 123 mg/dL (65-110); Lipase 107 U/L (23-300); Potassium 4.7 mmol/L (3.4-5.0); Sodium 137 mmol/L (137-145)
[2022-05-19 02:45] LABS: Troponin I < 0.012 ng/mL (0.000-0.034)
[2022-05-19 06:40] LABS: Troponin I < 0.012 ng/mL (0.000-0.034)
--- NOTE | 2022-05-19 06:53 | PC.NURSE ---
pt brought back to room #7 via w/c
[2022-05-19 08:41] LABS: Appearance Urine Clear (Clear); Bacteria Urine None Seen /hpf; Bilirubin Urine Negative (Negative); Blood Urine Negative (Negative); Color Urine Yellow (Yellow); Glucose Urine UA Negative (Negative); Ketones Urine Negative (Negative); Leukocyte Esterase Ur 3+ LEU/UL (Negative); Nitrate Urine Negative (Negative); Non Pathogenic Casts 0-2; Protein Urine Negative (Negative); Specific Grav Ur 1.019 (1.001-1.035); Squamous Epithelial Cell Urine None seen /hpf (Few); Urobilinogen Urine 0.2 mg/dL (<2.0); WBC Urine 21-50 /hpf
[2022-05-19 08:47] LABS: Add Urine Microscopic? YES
[2022-05-19 08:50] LABS: Magnesium 2.2 mg/dL (1.6-2.3)
[2022-05-19 09:02] LABS: Troponin I < 0.012 ng/mL (0.000-0.034)
--- NOTE | 2022-05-19 09:20 | PC.NURSE ---
all results back. waiting further orders. no change in pt condition. family remains at bedside.
--- NOTE | 2022-05-19 11:37 | ED.ARRPALP ---
HPI - Arrhythmia/Palpitations General Chief Complaint: Arrhythmia/Palpitations Stated Complaint: palpitations/weakness Time Seen by Provider: 05/19/22 07:01 Source: patient and RN notes reviewed Mode of arrival: ambulatory Limitations: no limitations History of Present Illness HPI narrative: This is an 87 year old female with history valvular disease, frequent pvcs who presents for evaluation of palpitations. Patient states yesterday she noticed weakness when going to the bathroom. She also reports having episode at that time in which her heart was pounding, but it was not racing. She denies chest pain or discomfort. She did note shortness of breat that time. She denies feeling palpitations at this time. She reports history of PACs and PVCs but she states this feels different. Her risk prevention engineer is Dr. Price. Related Data Home Medications Medication Instructions Recorded Confirmed alendronate 70 mg tablet 70 mg PO WEEKLY 10/02/19 07/03/20 calcitriol 0.25 mcg capsule 0.25 mcg PO DAILY 10/02/19 07/03/20 lansoprazole 30 mg capsule,delayed 30 mg PO DAILY 10/02/19 07/03/20 release levothyroxine 50 mcg tablet 50 mcg PO DAILY 10/02/19 07/03/20 (Synthroid) metoprolol succinate 50 mg 50 mg PO QPM 10/02/19 07/03/20 tablet,extended release 24 hr acetaminophen 325 mg tablet 650 mg PO QID PRN Pain (Scale 07/03/20 07/03/20 (Tylenol) Score 1-3) aspirin 81 mg tablet 81 mg PO DAILY 07/03/20 07/03/20 nifedipine 30 mg tablet,extended 30 mg PO QAM 07/03/20 07/03/20 release 24 hr (Procardia XL) alendronate 70 mg tablet tablet PO 08/27/21 buspirone 5 mg tablet tablet 08/27/21 levothyroxine 50 mcg tablet tablet 08/27/21 (Synthroid) metoprolol succinate 50 mg tablet PO 08/27/21 tablet,extended release 24 hr trazodone 50 mg tablet tablet 08/27/21 Allergies Allergy/AdvReac Type Severity Reaction Status Date / Time No Known Allergies Allergy Verified 08/29/21 15:07 Review of Systems Constitutional: Constitutional: Reports fatigue and Denies fever(s) ENT: Denies nasal congestion and Denies sore throat Cardiovascular: Cardiovascular: Reports chest pain, Denies rapid heart rate, Denies radiating jaw, neck or arm pain and Denies slow heart rate Respiratory: Respiratory: Denies chest congestion, Denies cough and Denies dyspnea Gastrointestinal: Gastrointestinal: Denies abdominal pain, Reports nausea and Denies vomiting [facility] Past Medical History Medical History Aortic stenosis GERD (gastroesophageal reflux disease) Hypertension Hypertension Hypothyroidism Osteoporosis PVCs (premature ventricular contractions) Temporal arteritis Surgical History Surgical History No pertinent past surgical history Family History Family History (System 08/29/21 @ 15:07 by Starr Limon) Mother Gallbladder cancer Heart disease Father Heart disease Social History Social History Smoking status: Never smoker Alcohol intake: never Substance use: never Substance use type: does not use Living arrangements: with family Gender identity (if verbalized by the patient): Female Spiritual care concerns: No Exam Const: General: no acute distress and alert Nutritional Appearance: thin Orientation/consciousness: patient oriented x3 HENMT: Head: normal to inspection Face and sinus: normal facial exam Throat: posterior oropharynx normal Eyes: EOM: EOMs intact bilaterally Neck: Neck: normal visual inspection Chest: Chest palpation & inspection: normal inspection of the chest Resp: Effort & Inspection: normal respiratory effort Auscultation: clear to auscultation bilaterally Cardio: Rate: regular rate Rhythm: regular rhythm Heart sounds: Murmur heart sound present GI: GI Palp: Yes Soft to palpation, No Tenderness to palpation present
== END 2022-05-19 12:25 | disposition home or self-care (01) ==
PROVIDERS: Emergency Medicine; Emergency Provider General Practice; PCP Internal Medicine Cardiovascular Disease
DX: R00.2 Palpitations (principal); N39.0 Urinary tract infection, site not specified; I10 Essential (primary) hypertension; E03.9 Hypothyroidism, unspecified; I49.3 Ventricular premature depolarization; N81.0 Urethrocele; I35.0 Nonrheumatic aortic (valve) stenosis; K21.9 Gastro-esophageal reflux disease without esophagitis; Z79.82 Long term (current) use of aspirin
CPT/HCPCS: 36415; 71046; 80053; 81001; 83690; 83735; 84484; 85025; 85610; 85730; 87086; 87088; 93005; 99284

== ENCOUNTER 2022-07-08 01:36 | Day surgery (SDC) | payer MEDICARE, BC, SELFPAY ==
[2022-07-07 13:47] VITALS: BMI 19.4
[2022-07-08] VITALS (10 sets, daily range): BP systolic 154–195; BP diastolic 47–100; PULSE 57–74; RESP 12–19; TEMP 36.8; O2SAT 96–100; BMI 19.3
--- NOTE | 2022-07-08 11:22 | WPDHPUPDATE1 ---
History and Physical Update Update Date/Time: 07/08/22 11:22 History and Physical has been reviewed, including an updated exam of the patient. There are NO changes in the patient's condition. Risks, benefits, and alternatives have been discussed and questions answered. Patient agrees to proceed with procedure.
--- NOTE | 2022-07-08 11:23 | WPDMODSED ---
Moderate Sedation Note-Pt Data Patient Data Diagnosis: Aortic stenosis and regurgitation Present Complaint: none Procedure to be performed/Plan: transesophageal echocardiogram Allergies Allergy/AdvReac Type Severity Reaction Status Date / Time No Known Allergies Allergy Verified 07/07/22 14:03 Home Medications Medication Instructions Recorded Confirmed Type alendronate 70 mg tablet 70 mg PO WEEKLY 10/02/19 07/07/22 History lansoprazole 30 mg capsule,delayed 30 mg PO DAILY 10/02/19 07/08/22 History release levothyroxine 50 mcg tablet 50 mcg PO DAILY 10/02/19 07/08/22 History (Synthroid) aspirin 81 mg tablet 81 mg PO DAILY 07/03/20 07/08/22 History nifedipine 30 mg tablet,extended 30 mg PO QAM 07/03/20 07/08/22 History release 24 hr (Procardia XL) ondansetron 4 mg disintegrating 4 mg PO Q8H PRN nausea and 07/17/21 07/07/22 Rx tablet vomiting #20 tabs buspirone 5 mg tablet 5 tablet PO BID 08/27/21 07/08/22 History trazodone 50 mg tablet 50 tablet PO HS 08/27/21 07/08/22 History acetaminophen 500 mg tablet 1,000 mg PO DAILY PRN Pain 07/07/22 07/08/22 History (Acetaminophen Extra Strength) calcium carbonate 600 mg calcium 600 mg PO DAILY 07/07/22 07/07/22 History (1,500 mg) tablet (Calcium) cholecalciferol (vitamin D3) 50 50 mcg PO DAILY 07/07/22 07/07/22 History mcg (2,000 unit) tablet (Vitamin D3) metoprolol succinate 100 mg 100 mg PO DAILY 07/07/22 07/08/22 History tablet,extended release 24 hr Sedation/Anesthesia: No previous sedation/anesthesia problems (including family history). [facility] Past Medical History Medical History Aortic stenosis GERD (gastroesophageal reflux disease) Hypertension Hypertension Hypothyroidism Osteoporosis PVCs (premature ventricular contractions) Temporal arteritis Surgical History Surgical History No pertinent past surgical history Family History Family History Mother Gallbladder cancer Heart disease Father Heart disease Social History Social History Smoking status: Never smoker Alcohol intake: never Substance use: never Substance use type: does not use Living arrangements: alone Gender identity (if verbalized by the patient): Female Spiritual care concerns: No Mod Sed Physical Exam Physical Exam Pre Procedural Exam: Normal: Appearance, Eyes, Ears, Nose, Neck ( supple, normal range of motion), Throat ( posterior hypopharynx clear, nonerythematous), Airway ( normal anatomy, no obstruction), Lungs ( clear to auscultation bilaterally), Heart Size, Heart Rate, Heart Rhythm, Neuro Exam, Abdomen, Liver, Extremities and Skin Hours since solid foods: 12 Hours since liquid intake: 12 Mallampati Classification: class III Internal Medicine - PN: Obj Da Vital Signs Vital Signs: Vital Signs - 24 hr 07/08/22 11:15 Temperature 36.8 C Pulse Rate 62 Respiratory Rate 13 Blood Pressure 191/56 H Pulse Oximetry 99 Oxygen Delivery Room Air ASA Classification/Sedation ASA Classification/Sedation ASA Class: III Emergent: No Risks: Risks, benefits and alternatives explained and patient/family accepted plan for sedation. Patient re-evaluated immediately prior to sedation.
--- NOTE | 2022-07-08 11:23 | WPDTEECHO ---
[facility] TransEsophageal Echocardiogram Date of procedure: 07/08/22 Procedure Type: transesophageal echocardiogram Diagnosis: aortic stenosis and regurgitation Indications: aortic stenosis and regurgitation Image Quality: acceptable Findings: Brief history present illness: Patient is a pleasant 87-year-old female with history of symptomatic PVCs status post PVC ablation x2, aortic stenosis, history of tricuspid and mitral regurgitation, pulmonary hypertension with recent echocardiogram suggesting least moderate aortic stenosis and regurgitation with worsening fatigue, shortness of breath referred for transesophageal echocardiogram for further evaluation of aortic valve pathology. Procedure in detail: After verbal and written informed consent was obtained the patient risks, benefits, and alternatives explained in detail the patient agreed to proceed with the plan of care as outlined above. The patient was evaluated at bedside in the [facility] procedure room. The posterior oropharynx, neck, and jaw angle all within normal limits on examination. Lungs were clear to auscultation. See pre-sedation note for further details The patient was then placed in the appropriate 30 to 45 degree angle supine position at a slight left lateral decubitus position. Patient was monitored throughout the study with telemetry, oxygen saturation, end-tidal CO2 monitoring, blood pressure, heart rate, and respirations. The posterior hypopharynx was then locally anesthetized using repeated administration of Hurricaine spray as well as gargled viscous lidocaine. After local anesthetic of the posterior hypopharynx was achieved and the oral bite block placed, moderate sedation was administered. After confirmation of adequate moderate sedation, the transesophageal echocardiogram probe was advanced through the oral bite block into the posterior hypopharynx and into the esophagus easily and without complication. Multiple, multiplanar echocardiographic images were obtained in multiple standard re- projections. Pulsed wave, continuous-wave, and color-flow Doppler were utilized in conjunction with this study. At the conclusion of the study, the transesophageal echocardiogram probe was removed easily and without complication. The patient tolerated the procedure well without difficulty. Patient was in sinus rhythm throughout the study. Moderate Sedation/Anesthesia administration: Patient reports no prior problems with sedation/anesthesia. Please see pre-sedation noted for physical examination documentation. As noted above, after adequate local anesthesia of the posterior hypopharynx was achieved, a total of 1.5 mg intravenous Versed and a total of 75 mcg intravenous Fentanyl in multiple divided doses was administered for moderate sedation. Sedation start time was 1155 and end time was 1213 for a total intra-service/procedure face-face time of 18 minutes. Sedation was administered by a qualified/certified observer Nadira White RN under my supervision with intra-procedure [id number] observation and management throughout the entirety of the procedure. There were no other issues or complications and patient tolerated the procedure well. See post-anesthesia documentation. FINDINGS: LEFT VENTRICLE: Size and systolic function were within normal limits without wall motion abnormalities with ejection fraction of 60% with mild LVH. RIGHT VENTRICLE: Size and systolic function within normal limits. LEFT ATRIUM: Moderate left atrial enlargement. RIGHT ATRIUM: Moderate to severe right atrial enlargement. INTERATRIAL SEPTUM: Interatrial septum is anatomically normal, thin and hypermobile without evidence of shunt with color-flow Doppler nor with injection of agitated saline. MITRAL VALVE: Mitral valve is anatomically normal with preserved leaflet excursion , mild thickening, and moderate regurgitation with least 2 separate regurgitant jets identified and mild mitral annular calc
== END 2022-07-08 13:40 | disposition home or self-care (01) ==
PROVIDERS: Visit Provider Internal Medicine Cardiovascular Disease
PROC: (CPT 93312; principal; 2022-07-08 11:30)
DX: I08.3 Combined rheumatic disorders of mitral, aortic and tricuspid valves (principal); I27.20 Pulmonary hypertension, unspecified
CPT/HCPCS: 93312; 93320; 93325; J2250; J3010; J7030